=== PATIENT | male | born 1970 | race Caucasian/White ===

== ENCOUNTER 2023-12-30 15:50 | Inpatient (IN) ==
[2023-12-30] MEDS: AMIODARONE / D5W 150 MG/100 ML BAG IV STA (16:19)
[2023-12-30] MEDS ORDERED: LIDOCAINE IV BOLUS & DRIP IV STA (16:31)
[2023-12-30] MEDS: AMIODARONE / D5W 360 MG/200 ML BAG IV ONE (16:34)
[2023-12-30] MEDS: AMIODARONE IV BOLUS & DRIP IV STA (16:38)
[2023-12-30] MEDS: STAT IV Infusion **Titration per Protocol STA ×2 (16:38→17:15)
[2023-12-30] MEDS ORDERED: LIDOCAINE/D5W DRIP 4MG/ML 2,000 MG/500 ML BAG IV SCH (16:45)
[2023-12-30 16:46] LABS: Basophils # (auto) 0.03 K/uL (0.00-0.20); Basophils % (auto) 0.3 %; Eosinophils # (auto) 0.04 K/uL (0.00-0.50); Eosinophils % (auto) 0.3 %; Hematocrit (blood only) 48.2 % (42.0-52.0); Hemoglobin 15.8 g/dl (14.0-18.0); Immature Granulocytes # (auto) 0.04 K/uL (0.01-0.20); Immature Granulocytes % (auto) 0.3 %; Lymphocytes # (auto) 2.54 K/uL (1.20-3.40); Lymphocytes % (auto) 22.2 %; Mean Corpuscular Hemoglobin 28.2 pg (25.0-34.0); Mean Corpuscular Hgb Conc 32.8 g/dL (32.0-36.0); Mean Corpuscular Volume 85.9 fL (80.0-100.0); Mean Platelet Volume 9.7 fL (9.4-12.4); Monocytes # (auto) 0.84 K/uL (0.11-0.59); Monocytes % (auto) 7.3 %; Neutrophils # (auto) 7.95 K/uL (1.40-6.50); Neutrophils % (auto) 69.6 %; Platelet Count 437 K/uL (130-400); RDW Coefficient of Variation 14.7 % (11.5-14.5); RDW Standard Deviation 46.5 fL (36.4-46.3); Red Blood Count 5.61 M/uL (4.70-6.10); White Blood Count 11.44 K/ul (4.8-10.8)
--- NOTE | 2023-12-30 16:48 | Emergency Department Note ---
Impression & Plan Atrial fibrillation with rapid ventricular response, Pulmonary edema, Bilateral pleural effusion, CHF (congestive heart failure) ED Provider Note HISTORY OF PRESENT ILLNESS: Patient is able to 3-year-old male presenting with lower extremity edema and shortness of breath. Patient reports that 3 days ago he had noticed some minor swelling in his lower extremities and had noticed he was slightly short of breath with minimal amounts of exertion. He states that he was doing yard work today and felt more fatigued than normal and was very short of breath with minimal exertion. He denies any chest pain. He denies any history of cardiac stents. He takes no medications. He denies any DVT or PE history. He denies any lightheadedness or dizziness. ROS: as above PHYSICAL EXAM: Constitutional: Patient appears in no acute distress. Patient is resting comfortably in the bed answering questions appropriately. HENT: Head: Normocephalic and atraumatic. Eyes: EOMI, PERRL Mouth/Throat: Mucous membranes moist. Neck: Trachea midline. Neck supple. Cardiovascular: Tachycardic with regular rhythm. No murmurs, rubs or gallops. Intact distal pulses. Pulmonary/Chest: No respiratory distress. Breath sounds clear and equal bilaterally. No wheezes or rales. Abdominal: Abdomen soft, no tenderness, rebound or guarding. Musculoskeletal: No tenderness or deformity noted. Trace edema in the bilateral lower extremities. Skin: Warm and dry. No rash, erythema, pallor or cyanosis Psychiatric: Appropriate mood and affect for situation. Neurological: Alert and keenly responsive. CN II-XII grossly intact, moving all extremities equally and fully. MDM: - Vitals signs showed tachycardia - History obtained via patient. History as above. - Chronic conditions affecting care: None - Differential diagnoses include, but are not limited to: Dysrhythmia; electrolyte abnormality; ACS; PE; pneumonia; CHF - Order placed for continuous cardiac monitoring. At this time, monitor showed rate of 129 bpm with irregular rhythm, per my interpretation. - External medical records reviewed. - Laboratory workup interpreted by myself showed leukocytosis (WBC 11.44); elevated INR (1.2); elevated dimer (1200); stable electrolytes; transaminitis (AST 44; ALT 87); normal lipase; normal troponin; elevated BNP (257) - CXR negative for pneumonia, per my interpretation - CT PE negative for PE. Noted to have cardiomegaly with interstitial pulmonary edema bilateral pleural effusions. - On initial assessment in the emergency department, patient was in a sustained ventricular tachycardia on telemetry. He is awake and oriented and answering questions appropriately. IV access was obtained and he was given a 150 mg IV amiodarone bolus and started on amiodarone drip. He did seem to have a few seconds of breaking of his wide-complex tachycardia and would go into an atrial fibrillation with a rapid rate, but would then go back into wide-complex sustained tachycardia. He was given 100 mg of IV lidocaine. He still had persistent tachycardia in the 180s to 220s. He was given an additional 150 mg IV amiodarone bolus with a continued drip. He was then given 5 mg IV Lopressor, a 69 mg IV esmolol bolus and started on esmolol drip. - Discussed case with bass singer, Dr. Bhagat, who presented to bedside. He agreed with the Lopressor and esmolol. Reports heart rate goal in the 120s. He recommended starting the patient on heparin drip. - Heparin drip ordered. - Patient's blood pressures remained stable and heart rate on the multiple drips was in the 130s on repeat assessment at 18:14. - Patient had multiple EKGs performed in the ER while under my care. His initial EKG interpreted by myself and obtained at 1613 showed ventricular tachycardia with a rate of 218. Repeat EKG obtained at 1631 interpreted by myself showed atrial fibrillation with rapid ventricular rate of 183 bpm. Repeat EKG obtained at 1643 interpreted by myself showed wide-complex tachycardia consistent with ventricular tachycardia. Rate 185 bpm. Repeat EKG obtained at 1701 interpreted by myself showed atrial fibrillation with rapid ventricular rate. Heart rate 182 bpm. Another EKG obtained at 1717 interpreted myself showed atrial fibrillation with rapid ventricular rate of 143 bpm. No acute ischemic changes. - Discussion was had with embedded case manager about patient's case and need for admission - Hospitalist consulted for admission - Patient admitted to [facility] service for further evaluation and management. I have personally spent 98 minutes of critical care time in the direct management of this patient. This includes bedside care, interpretation of diagnostic studies, and testing, discussion with consultants, patient, and family members, and other required patient management activities. This 98 minutes is in excess of all separately billable procedures. ASSESSMENT AND PLAN: Diagnosis: Atrial fibrillation with rapid ventricular rate; bilateral pleural effusions; pulmonary edema Plan: Admit Past Med/Surg History Problem List (Updated 12/30/23 @ 18:19 by Meri Davies MD) CHF (congestive heart failure) (Acute) Bilateral pleural effusion (Acute) Pulmonary edema (Acute) Atrial fibrillation with rapid ventricular response (Acute) Social History Smoking Status: Never smoker Preferred Language: Hungarian Feels Safe at Home: Yes Allergies Allergies Allergy/AdvReac Type Severity Reaction Status Date / Time No Known Allergies Allergy Unverified 12/30/23 16:39 Home Meds Home Medications Medication Instructions Recorded Confirmed No Known Home Medications 12/30/23 12/30/23 Results & Data (ED) Vital Signs Vital Signs - 24 hr 12/30/23 16:07 12/30/23 16:08 12/30/23 16:23 Temperature 36.7 C Temperature Source Temporal Artery Scan Pulse Rate 147 H 223 H Pulse Rate [Left Apical] Respiratory Rate 20 Respiratory Effort / Characteristics Non-Labored Spontaneous Respiratory Depth Normal Respiratory Pattern Blood Pressure 131/98 Blood Pressure [Right Arm] Blood Pressure Mean 109 Blood Pressure Mean [Right Arm] Blood Pressure Position Sitting Pulse Oximetry 97 99 Oxygen Delivery Method Room Air Room Air Sepsis Recent Fever Within 48 Hours No Sepsis New/Unexplained Change in Mental Status No Sepsis Action Taken by Nursing No Action Required 12/30/23 16:23 12/30/23 16:24 12/30/23 16:27 Temperature Temperature Source Pulse Rate 225 H 206 H Pulse Rate [Left Apical] 220 H Respiratory Rate 23 Respiratory Effort / Characteristics Respiratory Depth Respiratory Pattern Blood Pressure Blood Pressure [Right Arm] 141/110 H Blood Pressure Mean Blood Pressure Mean [Right Arm] 120 Blood Pressure Position Pulse Oximetry 98 99 Oxygen Delivery Method Room Air Room Air Sepsis Recent Fever Within 48 Hours Sepsis New/Unexplained Change in Mental Status Sepsis Action Taken by Nursing 12/30/23 16:31 12/30/23 16:40 12/30/23 16:45 Temperature Temperature Source Pulse Rate 190 H Pulse Rate [Left Apical] 156 H Respiratory Rate 20 Respiratory Effort / Characteristics Respiratory Depth Respiratory Pattern Blood Pressure 121/97 Blood Pressure [Right Arm] Blood Pressure Mean 103 Blood Pressure Mean [Right Arm] Blood Pressure Position Pulse Oximetry 98 Oxygen Delivery Method Room Air Sepsis Recent Fever Within 48 Hours Sepsis New/Unexplained Change in Mental Status Sepsis Action Taken by Nursing 12/30/23 16:47 12/30/23 16:51 12/30/23 17:04 Temperature Temperature Source Pulse Rate 198 H Pulse Rate [Left Apical] Respiratory Rate Respiratory Effort / Characteristics Respiratory Depth Respiratory Pattern Blood Pressure 145/99 H 165/133 H Blood Pressure [Right Arm] Blood Pressure Mean 112 138 Blood Pressure Mean [Right Arm] Blood Pressure Position Pulse Oximetry 100 Oxygen Delivery Method Room Air Sepsis Recent Fever Within 48 Hours Sepsis New/Unexplained Change in Mental Status Sepsis Action Taken by Nursing 12/30/23 17:06 12/30/23 17:12 12/30/23 17:16 Temperature Temperature Source Pulse Rate 174 H 155 H Pulse Rate [Left Apical] 150 H Respiratory Rate 22 Respiratory Effort / Characteristics Respiratory Depth Respiratory Pattern Blood Pressure 165/133 H Blood Pressure [Right Arm] 154/116 H Blood Pressure Mean Blood Pressure Mean [Right Arm] 128 Blood Pressure Position Pulse Oximetry 99 Oxygen Delivery Method Room Air Sepsis Recent Fever Within 48 Hours Sepsis New/Unexplained Change in Mental Status Sepsis Action Taken by Nursing 12/30/23 17:23 12/30/23 17:41 12/30/23 17:58 Temperature Temperature Source Pulse Rate Pulse Rate [Left Apical] 140 H 144 H Respiratory Rate Respiratory Effort / Characteristics Respiratory Depth Respiratory Pattern Blood Pressure 145/98 H Blood Pressure [Right Arm] 121/104 H 124/105 H Blood Pressure Mean 121 Blood Pressure Mean [Right Arm] 109 111 Blood Pressure Position Pulse Oximetry Oxygen Delivery Method Sepsis Recent Fever Within 48 Hours Sepsis New/Unexplained Change in Mental Status Sepsis Action Taken by Nursing 12/30/23 18:01 12/30/23 18:11 Temperature Temperature Source Pulse Rate Pulse Rate [Left Apical] 139 H 129 H Respiratory Rate 18 Respiratory Effort / Characteristics Non-Labored Spontaneous Respiratory Depth Normal Respiratory Pattern Regular Blood Pressure Blood Pressure [Right Arm] 121/95 116/93 Blood Pressure Mean Blood Pressure Mean [Right Arm] 103 100 Blood Pressure Position Pulse Oximetry 97 Oxygen Delivery Method Room Air Sepsis Recent Fever Within 48 Hours Sepsis New/Unexplained Change in Mental Status Sepsis Action Taken by Nursing Laboratory Data 12/30/23 16:17 12/30/23 16:17 Lab Results 12/30/23 12/30/23 Range/Units 16:14 16:17 WBC 11.44 H (4.8-10.8) K/ul RBC 5.61 (4.70-6.10) M/uL Hgb 15.8 (14.0-18.0) g/dl Hct 48.2 (42.0-52.0) % MCV 85.9 (80.0-100.0) fL MCH 28.2 (25.0-34.0) pg MCHC 32.8 (32.0-36.0) g/dL RDW Std Deviation 46.5 H (36.4-46.3) fL RDW Coeff of Matt 14.7 H (11.5-14.5) % Plt Count 437 H (130-400) K/uL MPV 9.7 (9.4-12.4) fL Immature Gran % (Auto) 0.3 % Neut % (Auto) 69.6 % Lymph % (Auto) 22.2 % [place] % (Auto) 7.3 % Eos % (Auto) 0.3 % Baso % (Auto) 0.3 % Neut # (Auto) 7.95 H (1.40-6.50) K/uL Lymph # (Auto) 2.54 (1.20-3.40) K/uL [place] # (Auto) 0.84 H (0.11-0.59) K/uL Eos # (Auto) 0.04 (0.00-0.50) K/uL Baso # (Auto) 0.03 (0.00-0.20) K/uL Immature Gran # (Auto) 0.04 (0.01-0.20) K/uL PT 12.4 H (9.0-12.0) Seconds INR 1.2 H (0.9-1.1) D-Dimer 1200 H* (0-500) ug/L FEU Sodium 136 (136-145) mmol/L Potassium 3.9 (3.5-5.1) mmol/L Chloride 104 (98-107) mmol/L Carbon Dioxide 22 (21-32) mmol/L Anion Gap 10 (3-11) BUN 17 (6-23) mg/dl Creatinine 1.16 (0.6-1.4) mg/dl Est Cr Clr Drug Dosing 103.0 ml/min eGFR 75.31 BUN/Creatinine Ratio 14.7 (10-20) Glucose 123 H (70-99(Fasting)) mg/dl Calcium 9.0 (8.6-10.3) mg/dl Magnesium 1.7 (1.7-2.4) mg/dl Total Bilirubin 0.7 (0.2-1.0) mg/dl AST 44 H (13-39) U/L ALT 87 H (7-52) U/L Alkaline Phosphatase 66 (34-104) U/L Troponin I High Sens 11.6 (0-20) pg/ml B-Natriuretic Peptide 257 H (0-100) pg/ml Total Protein 6.2 (6.0-8.3) gm/dl Albumin 3.8 (3.4-5.0) gm/dl Globulin 2.4 L (2.5-4.0) gm/dl Albumin/Globulin Ratio 1.6 (0.9-2) Lipase 21 (11-82) U/L Administered Medications Amiodarone HCl/Dextrose (Nexterone / D5w) 360 mg in 200 mls @ 33.333 mls/hr IV ONE ONE Stop: 12/30/23 22:24 Last Admin: 12/30/23 16:34 Dose: 1 mg/min, 33.3 mls/hr Documented By: KATIE Co-signed By: BOBBI Esmolol HCl (Brevibloc) 2,500 mg in 250 mls @ 41.34 mls/hr IV .[facility]3M [facility]; Protocol Stop: 01/29/24 17:14 Last Titration: 12/30/23 17:25 Dose: 100 mcg/kg/min, 82.7 mls/hr Documented By: Admin: 12/30/23 17:13 Dose: 50 mcg/kg/min, 41.3 mls/hr Documented By: KATIE Co-signed By: Discontinued Medications Amiodarone HCl (Amiodarone Iv Bolus & Drip) 1 each IV NOW STA; Protocol Stop: 12/30/23 16:16 Last Admin: 12/30/23 16:38 Dose: Not Given Documented By: JL Esmolol HCl (Esmolol Bolus From Bag) 69 mg IV ONE ONE Stop: 12/30/23 17:08 Last Admin: 12/30/23 17:11 Dose: 69 mg Documented By: KATIE Co-signed By: DINA Esmolol HCl (Esmolol 2500mg / Nss 250ml) Confirm Administered Dose 2,500 mg IV .STK-MED ONE Stop: 12/30/23 17:10 Last Admin: 12/30/23 17:15 Dose: Not Given Documented By: JL Amiodarone HCl/Dextrose (Nexterone / D5w) 150 mg in 100 mls @ 600 mls/hr IV NOW STA Stop: 12/30/23 16:24 Last Infusion: 12/30/23 16:36 Dose: Infused Documented By: JL Co-signed By: BOBBI Admin: 12/30/23 16:19 Dose: 600 mls/hr Documented By: DINA Co-signed By: JL Amiodarone HCl/Dextrose (Nexterone / D5w) 150 mg in 100 mls @ 600 mls/hr IV NOW ONE Stop: 12/30/23 17:09 Last Infusion: 12/30/23 17:06 Dose: Infused Documented By: JL Co-signed By: DINA Admin: 12/30/23 16:55 Dose: 600 mls/hr Documented By: JL Co-signed By: BOBBI Ioversol (Optiray 320 125ml) 118 ml IV ONCE ONE Stop: 12/30/23 17:51 Last Admin: 12/30/23 17:50 Dose: 118 ml Documented By: SAMUEL Lidocaine HCl (Lidocaine 2% 20 Mg/Ml 5 Ml Syr) 100 mg IV ONE STA Stop: 12/30/23 16:32 Last Admin: 12/30/23 16:50 Dose: 100 mg Documented By: JL Metoprolol Tartrate (Metoprolol Tartrate 1 Mg/Ml Vial) Confirm Administered Dose 5 mg IV .STK-MED ONE Stop: 12/30/23 17:06 Last Admin: 12/30/23 17:06 Dose: 5 mg Documented By: JL Metoprolol Tartrate (Metoprolol Tartrate 1 Mg/Ml Vial) 5 mg IV NOW STA Stop: 12/30/23 17:06 Last Admin: 12/30/23 17:09 Dose: Not Given Documented By: JL Misnalinianeous (Stat Iv Infusion Titration Per Protocol) 1 each N/A NOW STA Stop: 12/30/23 16:16 Last Admin: 12/30/23 16:38 Dose: Not Given Documented By: JL Miscellaneous (Stat Iv Infusion Titration Per Protocol) 1 each N/A NOW STA Stop: 12/30/23 17:08 Last Admin: 12/30/23 17:15 Dose: Not Given Documented By: [facility] Imaging Data Radiologist's Impression: Chest X-Ray 12/30/23 16:08 XR chest 1V portable CLINICAL HISTORY: Chest pain, nonspecific TECHNIQUE: Single frontal radiograph of the chest was obtained. Comparison: None available at the time of this dictation. FINDINGS: Exam is limited by underpenetration. The cardiomediastinal silhouette is normal. The lungs are clear. No evidence of pleural effusion or pneumothorax. IMPRESSION: No acute chest disease. ACT 112: Negative or not required by law. Electronically signed by: Jaquan Dawson M.D. 12/30/2023 5:10 PM Chest CTA 12/30/23 17:27 CT angio chest PE protocol CT DOSE: 967.96 mGy.cm HISTORY: 53 years-old Male with PE. Acute shortness of breath with chest pain TECHNIQUE: Multiple CTA images of the chest were obtained after the intravenous administration of 118 ml Optiray. Coronal and sagittal MIPS were obtained from the axial data set and were submitted for review. All measurements were obtained according to NASCET criteria. A dose lowering technique was utilized adhering to the principles of ALARA. COMPARISON: Chest radiograph of same day. FINDINGS: CTA: Mild to moderate cardiomegaly. No pericardial effusion. Mild coronary artery calcifications. Left heart structures are not well opacified and therefore not well evaluated. No central pulmonary emboli identified. Suboptimal evaluation of the pulmonary arteries secondary to contrast bolus timing and respiratory motion artifact. CT CHEST: Unremarkable thyroid. Small left with moderate right pleural effusions. No pneumothorax. Intralobular septal thickening. Mild dependent subsegmental bibasilar atelectasis. There are no suspicious pulmonary nodules or masses. Central airways are patent. Mild mediastinal and hilar lymphadenopathy. Small hiatal hernia. Trace upper abdominal ascites. There are a few scattered hypodense foci of the liver measuring up to 1.2 cm suggestive of probable cysts. IMPRESSION: 1. Cardiomegaly with interstitial pulmonary edema, small left and moderate right pleural effusions. 2. No pulmonary emboli identified. 3. Mild bibasilar atelectasis. 4. Mildly enlarged mediastinal and hilar lymph nodes, favored to be reactive. ACT 112: Negative or not required by law. The above report was generated using voice recognition software. It may contain grammatical, syntax or spelling errors. Electronically signed by: Lenin Alexandra M.D. 12/30/2023 6:08 PM Discharge Plan Visit Data Chief Complaint: Cardiac Assessment Stated Complaint: HIGH BLOOD PRESSURE ED Provider: Meri Davies Discharge Problem: Atrial fibrillation with rapid ventricular response, Pulmonary edema, Bilateral pleural effusion, CHF (congestive heart failure) Forms Stand Alone Forms: [facility] [employer] Prescriptions Prescriptions: No Action No Known Home Medications Referrals Referrals: Ganga Jorgensen MD [Outside Practitioners] -
[2023-12-30] MEDS: LIDOCAINE 2% 20 MG/ML 5 ML SYR IV STA (16:50)
[2023-12-30] MEDS: AMIODARONE / D5W 150 MG/100 ML BAG IV ONE (16:55)
[2023-12-30] MEDS ORDERED: 0.2 MICRON FILTER SET 1 EACH IV ONE (17:00)
--- NOTE | 2023-12-30 17:00 | Electrocardiogram Report ---
Test Reason : Blood Pressure : */* mmHG Vent. Rate : 218 BPM Atrial Rate : 56 BPM P-R Int : * ms QRS Dur : 154 ms QT Int : 260 ms P-R-T Axes : * -54 139 degrees QTcB Int : 495 ms Poor data quality, interpretation may be adversely affected Wide QRS tachycardia , probably ventricular tachycardia Left axis deviation Abnormal ECG No previous ECGs available Confirmed by José Noriega ([id number]) on 12/30/2023 4:59:41 PM Referred By: Confirmed By: José Noriega
[2023-12-30] MEDS: METOPROLOL TARTRATE 1 MG/ML VIAL IV ONE (17:06)
[2023-12-30 17:07] LABS: Albumin Globulin Ratio 1.6 (0.9-2); Albumin Level 3.8 gm/dl (3.4-5.0); BUN Creatinine Ratio 14.7 (10-20); Bilirubin,Total 0.7 mg/dl (0.2-1.0); Globulin 2.4 gm/dl (2.5-4.0); Potassium 3.9 mmol/L (3.5-5.1); Total Protein 6.2 gm/dl (6.0-8.3)
[2023-12-30] MEDS: METOPROLOL TARTRATE 1 MG/ML VIAL IV STA (17:09)
[2023-12-30 17:11] LABS: Troponin I High Sensitivity 11.6 pg/ml (0-20)
[2023-12-30] MEDS: ESMOLOL BOLUS FROM BAG IV ONE (17:11)
--- NOTE | 2023-12-30 17:12 | XRay Report ---
XR chest 1V portable CLINICAL HISTORY: Chest pain, nonspecific TECHNIQUE: Single frontal radiograph of the chest was obtained. Comparison: None available at the time of this dictation. FINDINGS: Exam is limited by underpenetration. The cardiomediastinal silhouette is normal. The lungs are clear. No evidence of pleural effusion or pneumothorax. IMPRESSION: No acute chest disease. ACT 112: Negative or not required by law. Electronically signed by: Jaquan Dawson M.D. 12/30/2023 5:10 PM
[2023-12-30] MEDS: ESMOLOL / NSS 2,500 MG/250 ML BAG IV SCH (17:13)
[2023-12-30] MEDS: ESMOLOL IV ONE (17:15)
[2023-12-30] MEDS: SODIUM CHLORIDE IV ONE (17:15)
[2023-12-30 17:19] LABS: INR 1.2 (0.9-1.1); Prothrombin Time 12.4 Seconds (9.0-12.0)
[2023-12-30 17:30] LABS: D Dimer 1200 ug/L FEU (0-500)
[2023-12-30 17:36] LABS: Magnesium 1.7 mg/dl (1.7-2.4)
[2023-12-30] MEDS: OPTIRAY 320 125ml IV ONE (17:50)
--- NOTE | 2023-12-30 18:10 | CT Scan Report ---
CT angio chest PE protocol CT DOSE: 967.96 mGy.cm HISTORY: 53 years-old Male with PE. Acute shortness of breath with chest pain TECHNIQUE: Multiple CTA images of the chest were obtained after the intravenous administration of 118 ml Optiray. Coronal and sagittal MIPS were obtained from the axial data set and were submitted for review. All measurements were obtained according to NASCET criteria. A dose lowering technique was u tilized adhering to the principles of ALARA. COMPARISON: Chest radiograph of same day. FINDINGS: CTA: Mild to moderate cardiomegaly. No pericardial effusion. Mild coronary artery calcifications. Left hea rt structures are not well opacified and therefore not well evaluated. No central pulmonary emboli id entified. Suboptimal evaluation of the pulmonary arteries secondary to contrast bolus timing and resp iratory motion artifact. CT CHEST: Unremarkable thyroid. Small left with moderate right pleural effusions. No pneumothorax. Intralobular septal thickening. Mild dependent subsegmental bibasilar atelectasis. There are no suspicious pulmon zuleyma nodules or masses. Central airways are patent. Mild mediastinal and hilar lymphadenopathy. Small hiatal hernia. Trace upper abdominal ascites. There are a few scattered hypodense foci of the l iver measuring up to 1.2 cm suggestive of probable cysts. IMPRESSION: 1. Cardiomegaly with interstitial pulmonary edema, small left and moderate right pleural effusions. 2. No pulmonary emboli identified. 3. Mild bibasilar atelectasis. 4. Mildly enlarged mediastinal and hilar lymph nodes, favored to be reactive. ACT 112: Negative or not required by law. The above report was generated using voice recognition software. It may contain grammatical, syntax o r spelling errors. Electronically signed by: Lenin Alexandra M.D. 12/30/2023 6:08 PM
--- NOTE | 2023-12-30 18:37 | Cardiology Consultation ---
Date of Consultation December 30, 2023 Assessment & Plan (1) Wide-complex tachycardia: 2. Atrial fibrillation with RVR 3. Acute heart failure 4. Elevated LFTs 5. Mild coronary artery calcifications Patient without known cardiac history here with initial new wide-complex tachycardia. After amiodarone, lidocaine has converted back and forth between WCT and A-fib with RVR to 170s. During all of this has remained largely asymptomatic and hemodynamically stable. Initial ECG concerning for ventricular tachycardia. Since that time WCT seems more consistent with SVT with aberrancy. With cardiomegaly on CT, elevated BNP, and apparent heart failure suspect undiagnosed structural heart disease. Currently appears to be responding to amiodarone infusion as well as as beta- blockade with esmolol drip. Has remained primarily in narrow complex rhythm with slowing heart rates. Recommendations: As primarily in AF now, goal for rate control overnight. Continue amiodarone infusion Continue current esmolol drip, titrate to heart rates 120s and below Start heparin infusion With unknown duration of arrhythmia would hold off on cardioversion unless hemodynamically unstable Gentle IV diuresis Continue to trend troponin Echocardiogram in the morning Will ask EP to see patient tomorrow. History of Present Illness History of Present Illness Mr. Dumas is a very pleasant 53-year-old man seen urgently in the ED in the setting of wide-complex tachycardia. Patient denies any significant past medical history. Reports multiple family members with hypertension but denies any history of premature CAD, sudden cardiac or known arrhythmia. Active at baseline, walks 2 miles every day including today. States that over the weekend has been feeling somewhat not like himself. Today felt more fatigued, blood pressure seemed elevated and just felt like something was wrong. Denies any presyncope, chest pain or shortness of breath. No new orthopnea, lower extremity edema. Regular wide-complex tachycardia in the ED with heart rate to the 200s (LBBB morphology, superior axis, no concordance, ? fusion beat). Hemodynamically stable. Bolused with amiodarone, lidocaine. Converted to narrow complex tac hycardia which appeared to be A-fib with RVR in the 170s before returning to WCT, additional bolus of amiodarone. Repeated conversion from WCT to narrow complex AF AF and back. During all of this patient felt anxious but denied any other cardiac symptoms. Remained hemodynamically stable. HS TropI normal. Electrolytes normal. D-dimer 1200, BNP 257. Chest CTA negative for PE. Cardiomegaly with mild interstitial edema, bilateral pleural effusions. Mild coronary calcifications. 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 Allergies Allergy/AdvReac Type Severity Reaction Status Date / Time No Known Allergies Allergy Unverified 12/30/23 16:39 Home Medications Medication Instructions Recorded Confirmed Type No Known Home Medications 12/30/23 12/30/23 History Patient History Social History Smoking Status: Never smoker Preferred Language: P[place] Feels Safe at Home: Yes Review of Systems Review of Systems: All systems reviewed & are unremarkable except as noted in HPI & below Physical Exam Physical Exam: General: Comfortable but anxious HEENT: Sclerae anicteric Lungs: Clear with decreased breath sounds at bases Cardiac: Tachycardic, irregular irregular, no appreciable murmurs Vascular: 2+ radial Abdomen: Soft, nontender Extremities: Well perfused, no peripheral edema Neuro: Nonfocal Psych: Alert orient x3, normal affect and mood Results & Data Vital Signs (Past 12 Hours) Vital Signs Temp Pulse Pulse Resp BP BP Pulse Ox 12/30/23 18:11 129 H 116/93 12/30/23 18:01 139 H 18 121/95 97 12/30/23 17:58 145/98 H 12/30/23 17:41 144 H 124/105 H 12/30/23 17:23 140 H 121/104 H 12/30/23 17:16 150 H 154/116 H 12/30/23 17:12 155 H 22 99 12/30/23 17:06 174 H 165/133 H 12/30/23 17:04 165/133 H 12/30/23 16:51 198 H 100 12/30/23 16:47 145/99 H 12/30/23 16:45 190 H 20 98 12/30/23 16:40 156 H 12/30/23 16:31 121/97 12/30/23 16:27 206 H 99 12/30/23 16:24 225 H 12/30/23 16:23 220 H 23 141/110 H 98 12/30/23 16:23 223 H 12/30/23 16:08 99 12/30/23 16:07 98.1 F 147 H 20 131/98 97 O2 Del Method 12/30/23 18:11 10/07/24 18:01 Room Air 12/30/23 17:58 12/30/23 17:41 12/30/23 17:23 12/30/23 17:16 12/30/23 17:12 Room Air 12/30/23 17:06 12/30/23 17:04 12/30/23 16:51 Room Air 12/30/23 16:47 12/30/23 16:45 Room Air 12/30/23 16:40 12/30/23 16:31 12/30/23 16:27 Room Air 12/30/23 16:24 12/30/23 16:23 Room Air 12/30/23 16:23 12/30/23 16:08 Room Air 12/30/23 16:07 Room Air PG Care Time/CCT Total # of Minutes Spent Total Time Spent with Patient: Total time spent is greater than 50% in coordination of care (as documented) at patient's floor/unit and/or counseling patient: Coding Level of Care Code 38564 OFFICE CONSULT LVL 5/55M Diagnoses Wide-complex tachycardia R00.0
[2023-12-30] MEDS: HEPARIN SODIUM/DEXTROSE 25,000 UNITS/500 ML BAG IV SCH (18:55)
[2023-12-30] MEDS: Heparin IV Adult Wt-Based Low-Dose *NO* INITIAL Bolus Protocol IV SCH (18:56)
[2023-12-30] MEDS: Heparin IV Adult Wt-Based Low-Dose *NO* INITIAL Bolus Protocol IV STA (18:56)
--- NOTE | 2023-12-30 19:12 | History & Physical Report ---
Date of Service December 30, 2023 Assessment & Plan (1) Wide-complex tachycardia: (2) Atrial fibrillation with rapid ventricular response: (3) Pulmonary edema: (4) Bilateral pleural effusion: Plan: 53 year old male with no known past medical history presenting with shortness of breath and leg edema x few days. 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 Patient states that for the past three days, he has been having shortness of breath with exertion and also noticed bilateral lower leg swelling. Today, while doing some yard work, patient had worsening shortness of breath prompting consult to the ER. At the ER, patient was noted to have wide complex tachycardia/V tach with HR 200s. Amiodarone and Lidocaine given, rhythm converted to atrial fibrillation in RVR. However, rhythm converted again to wide complex tachycardia. Esmolol started converting rhythm to atrial fibrillation in RVR. BP stable and patient asymptomatic. Heparin drip started for A fib. CT angio negative for PE. On exam, patient seen resting in bed, not in distress, comfortable. Feels tired but no active chest pain, dyspnea, palpitations, dizziness. Allergies Allergy/AdvReac Type Severity Reaction Status Date / Time No Known Allergies Allergy Unverified 12/30/23 16:39 Home Medications Medication Instructions Recorded Confirmed Type No Known Home Medications 12/30/23 12/30/23 History Past Med/Surg History Problem List (Updated 12/30/23 @ 19:42 by CATE Cordova) Elevated LFTs Heart enlarged Obesity Wide-complex tachycardia CHF (congestive heart failure) (Acute) Bilateral pleural effusion (Acute) Pulmonary edema (Acute) Atrial fibrillation with rapid ventricular response (Acute) Social History Smoking Status: Never smoker Preferred Language: Faroese Feels Safe at Home: Yes Review of Systems Review of Systems: all noted and negative except for above Physical Exam Physical Exam: General- oriented x 3, not in distress, speaks in sentences with no effort or accessory muscle use Head- atraumatic Eyes- PERRL, EOMI, anicteric ENT- oropharynx clear Neck- supple, no JVD, no adenopathy, no thyromegaly; carotids +2/2, no bruits appreciated Lungs- clear to auscultation bilaterally, no rales/wheezes Heart- tachycardic, irregularly irregular rhythm; no murmur, no gallop, no rub appreciated Abdomen- normal bowel sounds, nondistended, soft, nontender, no masses or hepatosplenomegaly Extremities- grade 1 lower extremity edema, no calf tenderness; peripheral pulses intact Neuro- alert, oriented x 3; CN 2-12 grossly intact; motor 5/5 bilaterally;sensation 100% on all extremities; no other gross focal neurologic deficits Skin- warm & dry Results & Data Results & Data Vital Signs (Past 12 Hours) Vital Signs Temp Pulse Pulse Resp BP BP Pulse Ox 12/30/23 19:00 142 H 20 110/93 95 12/30/23 18:45 133 H 21 97 12/30/23 18:40 135/84 12/30/23 18:30 135/90 12/30/23 18:21 141 H 14 96 12/30/23 18:20 122/100 12/30/23 18:11 129 H 116/93 12/30/23 18:01 139 H 18 121/95 97 12/30/23 17:58 145/98 H 12/30/23 17:41 144 H 124/105 H 12/30/23 17:23 140 H 121/104 H 12/30/23 17:16 150 H 154/116 H 12/30/23 17:12 155 H 22 99 12/30/23 17:06 174 H 165/133 H 12/30/23 17:04 165/133 H 12/30/23 16:51 198 H 100 12/30/23 16:47 145/99 H 12/30/23 16:45 190 H 20 98 12/30/23 16:40 156 H 12/30/23 16:31 121/97 12/30/23 16:27 206 H 99 12/30/23 16:24 225 H 12/30/23 16:23 220 H 23 141/110 H 98 12/30/23 16:23 223 H 12/30/23 16:08 99 12/30/23 16:07 36.7 C 147 H 20 131/98 97 O2 Del Method 12/30/23 19:00 12/30/23 18:45 Room Air 12/30/23 18:40 12/30/23 18:30 12/30/23 18:21 Room Air 12/30/23 18:20 12/30/23 18:11 12/30/23 18:01 Room Air 12/30/23 17:58 12/30/23 17:41 12/30/23 17:23 12/30/23 17:16 12/30/23 17:12 Room Air 12/30/23 17:06 12/30/23 17:04 12/30/23 16:51 Room Air 12/30/23 16:47 12/30/23 16:45 Room Air 12/30/23 16:40 12/30/23 16:31 12/30/23 16:27 Room Air 12/30/23 16:24 12/30/23 16:23 Room Air 12/30/23 16:23 12/30/23 16:08 Room Air 12/30/23 16:07 Room Air Code Status & VTE Plan VTE Prophylaxis Plan VTE Prophylaxis will be ordered: Yes
[2023-12-30 19:20] LABS: Partial Thromboplastin Time 26 Seconds (21-31)
--- NOTE | 2023-12-30 19:34 | Critical Care Consultation ---
Date of Consultation December 30, 2023 Assessment & Plan (1) Wide-complex tachycardia: (2) Atrial fibrillation with rapid ventricular response: (3) Obesity: (4) Heart enlarged: (5) Elevated LFTs: (6) Bilateral pleural effusion: Plan Reason Critically Ill: 53 YOM presents to EMD with wide complex tachycardia with HR >200s, stabilized on amiodarone and esmolol infusion. ICU for hemodynamic following, drip titration, and symptom managment. Neuro - No acute needs CAM ICU: NEGATIVE Cardiac - Afib with RVR, Wide Complex Tachycardia, Enlarged heart- which is likely new onset HF - Patient presented with wide complex tachycardia- sustained VT vs. Afib with abbarancy, following stabilizing his HR afib is predominant rythm - Continue heparin infusion as we do not know how long patient has been in this rythm - Esmolol and Amiodarone infusions- titrate Esmolol for HR 120s as hemodynamics allow - If hypotension occurs add on Neosynepherine - replete magnesium - Diurese as hemodynamics permit - Hopeful to avoid cardioversion as above- unknown time in this rhythm as clot may be possible - Heparin infusion for afib - TSH pending - ECHO in am evaluate heart function - Enlarged heart with likely new onset HF - as he is with pulmonary edema, pleural effusions and +2 edema to lower extremities bilateral to just below knees- this is likely undiagnosed HF - BNP 257 - Does not appear to be ischemic related as no STEMI noted on ECGs and negative HsCTNI - Likely related to obesity and other comorbid conditions associated - lipid panel in am - HGB A1c in am - consider consult to sleep medicine for SHILPI evaluation with body habitus Respiratory - Pleural effusions, enlarged mediastinal lymphnodes - Likely related to HF - Reports lifelong non-smoker - likely reactive - CTA not conclusive for PE rule out - however he is on room air without hypoxia and regardless is anticoagulated for afib GI - Elevated LFTS, - At this time likely cause is fatty liver disease vs. CHF or combination of these - trend LFTS in am - consider further imaging if don't improve with management of HF RENAL/LYTES - Hypomag - Replete electrolytes per ICU protocol - No acute needs at this time ENDO - Elevated serum glucose without diagnosis of diabetes - HGBa1C in am - ICU hyper/hypoglycemic protocol - TSH pending - Pending lipid panel, HGBa1C, ECHO- appropriate guideline based medications should be considered HEME - No acute needs ID - No concern for infective etiology at this time - Mild leukocytosis and NLR of 3:1- likely stress related response- follow clinically LINES/IV ACCESS - PIV x3 Continue use of these lines DVT PROPHYLAXIS - SCDS, Heparin infusion DISPO: ICU while on multiple infusions for rate control and until proven hemodynamically stable I have personally spent 50 minutes of critical care time in the direct management of this patient. This is a life/limb threatening event. This includes time spent evaluating patient, direct bedside care, chart review, placing or ders, interpretation of diagnostic studies, discussion with consultants, patient, and family members, as well as other required patient management activities. This time is exclusive of all separately billable procedures, and teaching time and separate from and in addition to any other critical care service time. Thank you for allowing us to participate in the care of this patient. Please refer to my attending physician's documentation for any further recommendations. History of Present Illness Reason for Consultation: Tachycardia Requesting Physician: Prabhu Cornell MD Attending Physician: Prabhu Cornell MD History of Present Illness 53 YOM - morbidly obese that reports no medications at home and no known medical history as he does not routinely follow with a PCP. Patient drove himself to the EMD today for complaints of feeling more fatigued and dyspneic with exertion and increased swelling in his lower extremities. Patient reports he has not noticed this before. He does report that he had some dizziness with this as well as palpitations. On arrival to the EMD initial ECG was noted for HR >200 bpm and wide comlex rythm. Patient was initiated on amiodarone infusion with bolus, trialed lidocaine bolus with infusion and rhythm remained, he was then given IV metoprolol, followed by bolus of Esmolol and Esmolol infusion which appears to have brought his HR down to the 120-130s. He had a CXR completed, ECG, and CTA of the chest as well as routine labs. ECG did not reveal any STEMI, CTA of the chest was negative for pulmonary embolism- however noted to be suboptimal study by radiologist interpretation secondary to dye timing and respiratory artifact, either way he was initiated on heparin infusion for his Afib rhythm. CTA was also notable for Cardiomegaly with pulmonary edema, and enlarged mediastinal lymphnodes. Patient is currently awake, denies CP and feels his breathing and palpitations have improved since arrival. He is currently in afib and BP is adequate without no need for vasopressors currently, and he is on room air with adequate oxygenation. Patient will come to the ICU for continued infusions, following hemodynamic response, monitoring of rhythm. Appreciate Cardiology evaluation and discussion with ICU team prior to arrival. CODE: FULL Allergies Allergy/AdvReac Type Severity Reaction Status Date / Time No Known Allergies Allergy Unverified 12/30/23 16:39 Home Medications Medication Instructions Recorded Confirmed Type No Known Home Medications 12/30/23 12/30/23 History Patient History Social History Smoking Status: Never smoker Second Hand Exposure: No; Do You Dip or Chew Tobacco: Yes; Hx Alcohol Use: Yes Hx Substance Use: No Preferred Language: Sami Communication Ability: Effective Pearl Glue Drier Required: No Beliefs That Will Affect Care: None Current Living Situation: Alone Current Living Situation Comment: alone Other Information That Helps Us Care for You: No Feels Safe at Home: Yes Safety Concerns: Feels Safe At This Time Assistive Devices: None Review of Systems Review of Systems: REVIEW OF SYSTEMS: Constitutional: No fever, sweats or chills Eyes: No diplopia, no worsening or blurred vision ENT: normal hearing, no trouble swallowing Respiratory: (+) dyspnea at rest or on exertion, No cough, sputum, Cardiovascular: (+) palpitations, dizziness, increased swelling of legs, No chest pain, tightness or Abdomen: No pain, nausea, vomiting, diarrhea or constipation Musculoskeletal: No joint pain, calf pain, swelling Neurologic: No weakness, numbness/tingling, or balance problems Psychiatric: No anxiety or depression Skin: No rash or itch Physical Exam Physical Exam: PHYSICAL EXAM: General: awake, alert, anxious appearing Head: Normocephalic, atraumatic ENT: PERRLA, EOMI, no pharyngeal exudate, mucous membranes moist Neuro: AAO x 3, speech clear and appropriate, strength intact bilaterally 5/5, no pronator drift Chest: equal rise and fall of the chest, no accessory muscle use, no heaves or thrills, decreased in bases bilaterally difficult exam secondary to body habitus, on room air, Cardiac: irregular rate and rhythm, telemetry reviewed- afib RVR no ectopy, skin warm dry, cap refill <3 seconds, peripheral pulses +2 no JVD, S1S2 no murmur, however diffiult exam secondary to body habitus, +2 edema in feet, up to just below knees bilaterally, GI: NABS x 4 quadrants, softly obese, nontender to palpation, no rebound, guarding or tenderness : Spontaneously voiding, no pain, no CVA tenderness, Extremities: Normal inspection, no peripheral edema or erythema, calfs nontender to palpation Psych: Normal mood and affect Skin: no rash or erythema Results & Data Results & Data Vital Signs (Past 12 Hours) Vital Signs Temp Pulse Pulse Resp BP BP Pulse Ox 12/30/23 19:13 97 12/30/23 19:00 142 H 20 110/93 95 12/30/23 18:45 133 H 21 97 12/30/23 18:40 135/84 12/30/23 18:30 135/90 12/30/23 18:21 141 H 14 96 12/30/23 18:20 122/100 12/30/23 18:11 129 H 116/93 12/30/23 18:01 139 H 18 121/95 97 12/30/23 17:58 145/98 H 12/30/23 17:41 144 H 124/105 H 12/30/23 17:23 140 H 121/104 H 12/30/23 17:16 150 H 154/116 H 12/30/23 17:12 155 H 22 99 12/30/23 17:06 174 H 165/133 H 12/30/23 17:04 165/133 H 12/30/23 16:51 198 H 100 12/30/23 16:47 145/99 H 12/30/23 16:45 190 H 20 98 12/30/23 16:40 156 H 12/30/23 16:31 121/97 12/30/23 16:27 206 H 99 12/30/23 16:24 225 H 12/30/23 16:23 220 H 23 141/110 H 98 12/30/23 16:23 223 H 12/30/23 16:08 99 12/30/23 16:07 36.7 C 147 H 20 131/98 97 O2 Del Method 12/30/23 19:13 Room Air 12/30/23 19:00 12/30/23 18:45 Room Air 12/30/23 18:40 12/30/23 18:30 12/30/23 18:21 Room Air 12/30/23 18:20 12/30/23 18:11 12/30/23 18:01 Room Air 12/30/23 17:58 12/30/23 17:41 12/30/23 17:23 12/30/23 17:16 12/30/23 17:12 Room Air 12/30/23 17:06 12/30/23 17:04 12/30/23 16:51 Room Air 12/30/23 16:47 12/30/23 16:45 Room Air 12/30/23 16:40 12/30/23 16:31 12/30/23 16:27 Room Air 12/30/23 16:24 12/30/23 16:23 Room Air 12/30/23 16:23 12/30/23 16:08 Room Air 12/30/23 16:07 Room Air Laboratory Results Abnormal lab results 12/30/23 12/30/23 Range/Units 16:14 16:17 WBC 11.44 H (4.8-10.8) K/ul RDW Std Deviation 46.5 H (36.4-46.3) fL RDW Coeff of Matt 14.7 H (11.5-14.5) % Plt Count 437 H (130-400) K/uL Neut # (Auto) 7.95 H (1.40-6.50) K/uL [place] # (Auto) 0.84 H (0.11-0.59) K/uL PT 12.4 H (9.0-12.0) Seconds INR 1.2 H (0.9-1.1) D-Dimer 1200 H* (0-500) ug/L FEU Glucose 123 H (70-99(Fasting)) mg/dl AST 44 H (13-39) U/L ALT 87 H (7-52) U/L B-Natriuretic Peptide 257 H (0-100) pg/ml Globulin 2.4 L (2.5-4.0) gm/dl Diagnostic Findings Chest X-Ray 12/30/23 16:08 XR chest 1V portable CLINICAL HISTORY: Chest pain, nonspecific TECHNIQUE: Single frontal radiograph of the chest was obtained. Comparison: None available at the time of this dictation. FINDINGS: Exam is limited by underpenetration. The cardiomediastinal silhouette is normal. The lungs are clear. No evidence of pleural effusion or pneumothorax. IMPRESSION: No acute chest disease. ACT 112: Negative or not required by law. Electronically signed by: Jaquan Dawson M.D. 12/30/2023 5:10 PM Chest CTA 12/30/23 17:27 CT angio chest PE protocol CT DOSE: 967.96 mGy.cm HISTORY: 53 years-old Male with PE. Acute shortness of breath with chest pain TECHNIQUE: Multiple CTA images of the chest were obtained after the intravenous administration of 118 ml Optiray. Coronal and sagittal MIPS were obtained from the axial data set and were submitted for review. All measurements were obtained according to NASCET criteria. A dose lowering technique was utilized adhering to the principles of ALARA. COMPARISON: Chest radiograph of same day. FINDINGS: CTA: Mild to moderate cardiomegaly. No pericardial effusion. Mild coronary artery calcifications. Left heart structures are not well opacified and therefore not well evaluated. No central pulmonary emboli identified. Suboptimal evaluation of the pulmonary arteries secondary to contrast bolus timing and respiratory motion artifact. CT CHEST: Unremarkable thyroid. Small left with moderate right pleural effusions. No pneumothorax. Intralobular septal thickening. Mild dependent subsegmental bibasilar atelectasis. There are no suspicious pulmonary nodules or masses. Central airways are patent. Mild mediastinal and hilar lymphadenopathy. Small hiatal hernia. Trace upper abdominal ascites. There are a few scattered hypodense foci of the liver measuring up to 1.2 cm suggestive of probable cysts. IMPRESSION: 1. Cardiomegaly with interstitial pulmonary edema, small left and moderate right pleural effusions. 2. No pulmonary emboli identified. 3. Mild bibasilar atelectasis. 4. Mildly enlarged mediastinal and hilar lymph nodes, favored to be reactive. ACT 112: Negative or not required by law. The above report was generated using voice recognition software. It may contain grammatical, syntax or spelling errors. Electronically signed by: Lenin Alexandra M.D. 12/30/2023 6:08 PM Medications Administered Home Medications No Known Home Medications 12/30/23 [History Confirmed 12/30/23] Active Medications Amiodarone HCl/Dextrose (Nexterone / D5w) 360 mg in 200 mls @ 33.333 mls/hr IV ONE ONE Stop: 12/30/23 22:24 Last Admin: 12/30/23 16:34 Dose: 1 mg/min, 33.3 mls/hr Amiodarone HCl/Dextrose (Nexterone / D5w) 360 mg in 200 mls @ 16.667 mls/hr IV .Q12H PIEDAD Stop: 01/29/24 22:14 Esmolol HCl (Brevibloc) 2,500 mg in 250 mls @ 41.34 mls/hr IV .Q6H3M PIEDAD; Protocol Stop: 01/29/24 17:14 Last Titration: 12/30/23 17:25 Dose: 100 mcg/kg/min, 82.7 mls/hr Heparin Sodium/Dextrose (Heparin Sodium/Dextrose) 25,000 units in 500 mls @ 20 mls/hr IV .Q24H PIEDAD; Protocol Stop: 01/29/24 17:44 Last Admin: 12/30/23 18:55 Dose: 1,000 units/hr, 20 mls/hr Magnesium Sulfate/Dextrose (Magnesium Sulfate / D5w) 1 gm in 100 mls @ 50 mls/hr IV Q2H PIEDAD Stop: 12/31/23 01:29 Miscellaneous (Icu Protocol For Hyperglycemia) 1 each N/A ACHS [facility] Stop: 01/01/24 20:59 ECG Additional Comments: Atrial fibrillationwith rapid ventricular response Anteroseptal infarct(cited on or [id number]) Abnormal ECG When compared with ECG [id number] 16:41,(unconfirmed) Questionable change in initial forces ofSeptal leads Poor data quality, interpretation may be adversely affected Wide QRS tachycardia, probably ventricular tachycardia Left axis deviation Abnormal ECG No previous ECGs available Confirmed by José Noriega ([id number]) on 12/30/2023 4:59:41 PM Coding Level of Care Code 78419 CRITICAL CARE 1ST 30-74M Diagnoses Wide-complex tachycardia R00.0 Atrial fibrillation with rapid ventricular response I48.91 Obesity E66.9 Heart enlarged I51.7 Elevated LFTs R79.89 Bilateral pleural effusion J90
[2023-12-30] MEDS ORDERED: STAT IV Infusion **Titration per Protocol STA (20:03)
[2023-12-30] MEDS: MAGNESIUM SULFATE / D5W 1 GM/100 ML BAG IV SCH (20:04)
[2023-12-30] MEDS: PHENYLEPHRINE/NSS 25 MG/250 ML BAG IV SCH (20:13)
[2023-12-30 20:25] LABS: Thyroid Stimulating Hormone 3.111 uIu/ml (0.300-4.500)
[2023-12-30] MEDS: POTASSIUM CHLORIDE CRTAB 20 MEQ TABCR PO STA (20:31)
[2023-12-30] MEDS: ICU Protocol for HYPERglycemia SCH (21:13)
[2023-12-30] MEDS: FUROSEMIDE INJ 20 MG/2 ML VIAL IV ONE (22:03)
[2023-12-30] MEDS: AMIODARONE / D5W 360 MG/200 ML BAG IV SCH (22:06)
[2023-12-30 22:12] LABS: Appearance Urine Clear (Clear); Bacteria Urine Automated None Seen (None Seen); Bilirubin Urine Negative (Negative); Blood Urine Negative (Negative); Color Urine Yellow; Epithelial Cell Urine Auto 0-2 /hpf (0-2); Glucose Urine UA Negative (Negative); Ketones Urine Trace (Negative); Leukocyte Esterase Urine Negative (Negative); Nitrite Urine Negative (Negative); Protein Urine 1+ (Negative); RBC Urine Automated 0-2 /hpf (0-2); Specific Gravity Urine > 1.045 (1.000-1.030); Sperm Urine Present (None Prsent); Urobilinogen Urine Negative (Negative); WBC Urine Automated 0-5 /hpf (0-5); pH Urine 5.5 (4.5-7.5)
[2023-12-31 00:14] LABS: ANTI-Xa, UFH(UnfractionatedHep 0.18 IU/ml (0.3-0.7)
[2023-12-31] MEDS: HEPARIN SOD (PORCINE) 1000 UNIT/ML IV ONE (01:09)
[2023-12-31 05:03] LABS: Albumin Level 3.4 gm/dl (3.4-5.0); Bilirubin Direct 0.2 mg/dl (0-0.2); Bilirubin,Total 0.5 mg/dl (0.2-1.0); Total Protein 5.5 gm/dl (6.0-8.3)
[2023-12-31 05:15] LABS: ANTI-Xa, UFH(UnfractionatedHep 0.59 IU/ml (0.3-0.7); INR 1.2 (0.9-1.1); Prothrombin Time 13.2 Seconds (9.0-12.0)
[2023-12-31 07:10] LABS: BUN Creatinine Ratio 13.9 (10-20); Calcium 8.3 mg/dl (8.6-10.3); Creatinine Clr Calc Pharmacy 104.1 ml/min; Potassium 5.1 mmol/L (3.5-5.1)
[2023-12-31 07:11] LABS: Chol HDL Ratio 2.9 (0-5); Magnesium 2.3 mg/dl (1.7-2.4); Phosphorus 4.3 mg/dl (2.5-4.9)
[2023-12-31 07:31] LABS: Estimated Average Glucose 120 mg/dl; Hemoglobin A1C 5.8 % (4.5-5.6)
[2023-12-31] MEDS: ICU ELECTROLYTE REPLACEMENT PROTOCOL SCH (07:36)
--- NOTE | 2023-12-31 07:59 | Critical Care Progress Note ---
Date of Service December 31, 2023 Assessment & Plan (1) Wide-complex tachycardia: (2) Atrial fibrillation with rapid ventricular response: (3) Obesity: (4) Heart enlarged: (5) Elevated LFTs: (6) Bilateral pleural effusion: Plan Reason Critically Ill: 53 YOM presents to [facility] with wide complex tachycardia with HR >200s, stabilized on amiodarone and esmolol infusion. ICU for hemodynamic following, drip titration, and symptom managment. Neuro - No acute needs CAM ICU: NEGATIVE Cardiac - Afib with RVR, Wide Complex Tachycardia, Enlarged heart- which is likely new onset HF - Patient presented with wide complex tachycardia- sustained VT vs. Afib with abbarancy, following stabilizing his HR afib is predominant rhythm - Continue heparin infusion as we do not know how long patient has been in this rhythm -Continue with amiodarone drip - If hypotension occurs add on Neosynepherine -Keep potassium greater than 4, magnesium greater than 2, phosphorus greater than 3 - TSH within normal limit - Enlarged heart with likely new onset HF - as he is with pulmonary edema, pleural effusions and +2 edema to lower extremities bilateral to just below knees- this is likely undiagnosed HF - BNP 257 - Does not appear to be ischemic related as no STEMI noted on ECGs and negative HsCTNI - Likely related to obesity and other comorbid conditions associated - lipid panel in am - HGB A1c in am - consider consult to sleep medicine for SHILPI evaluation with body habitus Respiratory - Pleural effusions, enlarged mediastinal lymphnodes - Likely related to HF - Reports lifelong non-smoker - likely reactive - CTA not conclusive for PE rule out - however he is on room air without hypoxia and regardless is anticoagulated for afib CTA chest 12/30/2023 personally reviewed: Motion degraded study Patchy alveolar opacities in the upper lobes, likely pulmonary edema Bilateral pleural effusion, right greater than left Cardiomegaly No significant mediastinal lymphadenopathy GI - Elevated LFTS, - At this time likely cause is fatty liver disease vs. CHF or combination of these - trend LFTS in am - consider further imaging if don't improve with management of HF RENAL/LYTES - Hypomag - Replete electrolytes per ICU protocol - No acute needs at this time ENDO - Elevated serum glucose without diagnosis of diabetes - HGBa1C 5.8 - ICU hyper/hypoglycemic protocol - TSH 3.11, within normal limit HEME - No acute needs ID - No concern for infective etiology at this time - Mild leukocytosis and NLR of 3:1- likely stress related response- follow clinically --Prophylaxis VTE: Heparin GI: None Lines: Peripheral Diet: Cardiac Plan: In/out: +914, urine output 900 mL I saw the patient on metoprolol 25 mg twice daily and titrate it higher to keep heart rate less than 110 Continue with heparin drip 40 mg of Lasix will be given to the patient today Patient does have moderate right and minimal pleural effusion, he is not in respiratory distress, I would recommend just diuresing him. No indication for thoracentesis right now Probability of SHILPI, trial of CPAP in the hospital. Polysomnography as an outpatient Will await for patient to be seen with cardiology to decide disposition Please note the above document was generated using voice recognition software. It may contain grammatical, syntax or spelling errors.Any formal questions or concerns about the content, text or information contained within the body of this dictation should be directly addressed to the provider for clarification. Admission and Anticipated Discharge Date Admission Date: December 30, 2023 Subjective Patient seen and examined at bedside. No acute distress, no adverse events overnight His heart rate was in the high 1 teens to low 120s. He was not in any respiratory distress. No shortness of breath Denied any chest pain, no headache, no nausea, no vomiting Is n.p.o. for possible procedure today. Was on heparin drip as well as amiodarone drip Review of Systems 2 Review of Systems: All systems reviewed & are unremarkable except as noted in Subjective Physical Exam 2 Physical Exam: Constitutional: No acute distress HEENT: EOMI, PERRLA Respiratory system: Good air entry bilaterally, no wheeze, no rhonchi, mild crackles bilaterally CVS: S1-S2 positive, no murmurs or gallops Abdomen: Soft, nontender, nondistended, positive bowel sounds x4, obese Extremities: +2 pulses bilaterally radialis/ dorsalis pedis, no cyanosis, +3 pitting edema bilateral lower extremity Neuro: Awake alert oriented x3 Psych: Normal mood and affect G/U: No Cavanaugh Skin: no rashes, warm and dry Lymphatic: no cervical or axillary lymphadenopathy Results & Data Results & Data Vital Signs (Past 12 Hours) Vital Signs Temp Pulse Pulse Resp BP BP Pulse Ox 12/31/23 07:46 113 H 12/31/23 06:30 126/90 12/31/23 06:15 124 H 20 96 12/31/23 06:03 110 H 21 91 12/31/23 06:01 96/80 L 12/31/23 06:01 96/80 L 12/31/23 06:01 96/80 L 12/31/23 05:54 112 H 22 94 12/31/23 05:39 118 H 22 94 12/31/23 05:03 107/81 12/31/23 05:03 107/81 12/31/23 05:03 107/81 12/31/23 05:03 107 H 26 H 93 12/31/23 05:01 133/114 H 12/31/23 05:01 133/114 H 12/31/23 05:00 120 H 21 90 12/31/23 04:30 125/100 12/31/23 04:30 112 H 20 94 12/31/23 04:12 110 H 25 H 93 12/31/23 04:00 115/98 12/31/23 03:45 113 H 21 95 12/31/23 03:34 116/94 12/31/23 03:33 111 H 18 94 12/31/23 03:30 125 H 27 H 85 L 12/31/23 03:09 102 H 23 91 12/31/23 03:01 136/85 12/31/23 02:51 111 H 19 92 12/31/23 02:39 117 H 20 90 12/31/23 02:31 123/87 12/31/23 02:31 123/87 12/31/23 02:24 112 H 25 H 91 12/31/23 02:15 108 H 18 89 L 12/31/23 02:00 115/98 12/31/23 01:51 116 H 32 H 94 12/31/23 01:30 118 H 23 94 12/31/23 01:03 112 H 24 94 12/31/23 01:00 103/87 12/31/23 00:51 111 H 22 95 12/31/23 00:45 115 H 19 95 12/31/23 00:31 111/85 12/31/23 00:24 120 H 21 94 12/31/23 00:13 113 H 12/31/23 00:06 101 H 18 95 12/31/23 00:00 120/91 12/31/23 00:00 119 H 12/30/23 23:00 36.7 C 132 H 18 80/64 L 96 12/30/23 21:01 102/73 12/30/23 21:00 131 H 20 99 12/30/23 20:47 159/81 H 12/30/23 20:37 129 H 12/30/23 20:30 129 H 22 96 12/30/23 20:09 150 H 19 96 12/30/23 20:01 80/64 L O2 Del Method 12/31/23 07:46 12/31/23 06:30 12/31/23 06:15 12/31/23 06:03 12/31/23 06:01 12/31/23 06:01 12/31/23 06:01 12/31/23 05:54 12/31/23 05:39 12/31/23 05:03 12/31/23 05:03 12/31/23 05:03 12/31/23 05:03 12/31/23 05:01 12/31/23 05:01 12/31/23 05:00 12/31/23 04:30 12/31/23 04:30 12/31/23 04:12 12/31/23 04:00 12/31/23 03:45 12/31/23 03:34 12/31/23 03:33 12/31/23 03:30 12/31/23 03:09 12/31/23 03:01 12/31/23 02:51 12/31/23 02:39 12/31/23 02:31 12/31/23 02:31 12/31/23 02:24 12/31/23 02:15 12/31/23 02:00 12/31/23 01:51 12/31/23 01:30 12/31/23 01:03 12/31/23 01:00 12/31/23 00:51 12/31/23 00:45 12/31/23 00:31 12/31/23 00:24 12/31/23 00:13 12/31/23 00:06 12/31/23 00:00 12/31/23 00:00 12/30/23 23:00 Room Air 12/30/23 21:01 12/30/23 21:00 12/30/23 20:47 12/30/23 20:37 12/30/23 20:30 12/30/23 20:09 12/30/23 20:01 Laboratory Results 12/30/23 16:17 12/31/23 04:14 Coding Level of Care Code 26382 SUB INP/OBS CARE 3/50MIN Diagnoses Wide-complex tachycardia R00.0 Atrial fibrillation with rapid ventricular response I48.91 Obesity E66.9 Heart enlarged I51.7 Elevated LFTs R79.89 Bilateral pleural effusion J90
[2023-12-31 09:50] LABS: iSTAT Blood Urea Nitrogen 17 mg/dl (7-18); iSTAT Carbon Dioxide 20 mmol/L (24-31); iSTAT Chloride 103 mmol/L (101-112); iSTAT Glucose 125 mg/dl (70-99); iSTAT Hematocrit 51 % (42-52); iSTAT Hemoglobin 17.3 g/dl (14.0-18.0); iSTAT Ionized Calcium 1.11 mmol/l (1.12-1.32); iSTAT Potassium 3.8 mmol/L (3.3-5.0); iSTAT Sodium 137 mmol/L (135-144)
[2023-12-31] MEDS: METOPROLOL TARTRATE 25 MG TAB PO SCH (10:08)
[2023-12-31] MEDS: CALCIUM GLUCONATE 1,000 MG/60 ML BAG IV STA (10:08)
[2023-12-31] MEDS: FUROSEMIDE 40 MG/4 ML VIAL IV ONE (11:24)
--- NOTE | 2023-12-31 11:37 | XCELERA ---
[id number] [id number]
--- NOTE | 2023-12-31 13:31 | Hospitalist Progress Note ---
Date of Service December 31, 2023 Assessment & Plan (1) Atrial fibrillation with rapid ventricular response: (2) Acute on chronic systolic heart failure: (3) Wide-complex tachycardia: (4) Prediabetes: (5) Pulmonary hypertension: (6) Morbid obesity: (7) Suspected sleep apnea: (8) Bilateral pleural effusion: Plan Patient remains critically ill with atrial fibrillation and rapid ventricular response and acute on chronic heart failure. Communication with cardiology, continue with IV amiodarone loading, start oral beta-art, discussed possible TAMRA cardioversion with patient. Okay with transfer to PCU Communication with parachute panel joiner, okay with transfer to PCU Can start diet, no intervention/procedures planned until at least tomorrow Continue diuresis with IV Lasix Titrate metoprolol, using short acting metoprolol at this time, transition to metoprolol succinate for goal-directed medical therapy for CHF when rates are controlled Start Jardiance Start Entresto Hold Aldactone at this time, potassium slightly elevated Patient will need cardiac cath at some point for ischemic evaluation Case management for discharge planning 54 minutes spent on coordinating care, communication with medical team, care at the bedside, review of EMR Admission and Anticipated Discharge Date Admission Date: December 30, 2023 Subjective Patient states that his shortness of breath is significantly improved. No chest pain. Extremely scared and anxious about his overall medical condition and his heart condition. Physical Exam Physical Exam: Constitutional: Alert, nontoxic, no acute distress HEENT: Mucous membranes moist. Lungs: Decreased breath sounds at bases, Rales at bases, no wheezes CV: S1-S2, tachycardic, irregular irregular Abdomen: Soft, nontender, nondistended Extremities: +2 pitting edema Neuro: No focal deficits Psych: Cooperative, normal mood, anxious Results & Data Results & Data Vital Signs (Past 12 Hours) Vital Signs Pulse Resp BP Pulse Ox O2 Del Method 12/31/23 08:42 135/107 H 12/31/23 08:39 Room Air 12/31/23 08:24 128 H 21 123/93 100 12/31/23 08:00 131 H 31 H 94 12/31/23 07:46 113 H 12/31/23 07:31 122/86 12/31/23 07:09 128 H 24 114/91 93 12/31/23 06:30 126/90 12/31/23 06:15 124 H 20 96 12/31/23 06:03 110 H 21 91 12/31/23 06:01 96/80 L 12/31/23 06:01 96/80 L 12/31/23 06:01 96/80 L 12/31/23 05:54 112 H 22 94 12/31/23 05:39 118 H 22 94 12/31/23 05:03 107/81 12/31/23 05:03 107/81 12/31/23 05:03 107/81 12/31/23 05:03 107 H 26 H 93 12/31/23 05:01 133/114 H 12/31/23 05:01 133/114 H 12/31/23 05:00 120 H 21 90 12/31/23 04:30 125/100 12/31/23 04:30 112 H 20 94 12/31/23 04:12 110 H 25 H 93 12/31/23 04:00 115/98 12/31/23 03:45 113 H 21 95 12/31/23 03:34 116/94 12/31/23 03:33 111 H 18 94 12/31/23 03:30 125 H 27 H 85 L 12/31/23 03:09 102 H 23 91 12/31/23 03:01 136/85 12/31/23 02:51 111 H 19 92 12/31/23 02:39 117 H 20 90 12/31/23 02:31 123/87 12/31/23 02:31 123/87 12/31/23 02:24 112 H 25 H 91 12/31/23 02:15 108 H 18 89 L 12/31/23 02:00 115/98 12/31/23 01:51 116 H 32 H 94 12/31/23 01:30 118 H 23 94 Diagnostic Findings Reviewed imaging, laboratory and diagnostic studies. Pertinent findings as below. WBCs 11.4, hemoglobin 15.8 Electrolytes within normal range Creatinine 1.1 Hemoglobin A1c 5.8% Echocardiogram Shows ejection fraction 30 to 35%, mildly reduced RV function, borderline pulmonary hypertension
--- NOTE | 2023-12-31 14:22 | Cardiology Progress Note ---
Date of Service December 31, 2023 Assessment & Plan (1) Acute HFrEF (heart failure with reduced ejection fraction): Plan: 2. Atrial fibrillation with RVR 3. Wide-complex tachycardiasuspected presenting monomorphic VT 4. Mild to moderate mitral regurgitation 5. Mild coronary artery calcifications 6. Mildly dilated RV/dysfunction with borderline pulmonary hypertension. 7. Class III obesity/suspected SHILPI Improved rate control on IV amiodarone and now p.o. beta-art. Persistent congestion on exam but responding to IV diuretics this morning Echo today shows moderate to severe global LV dysfunction along with mild RV dysfunction. Etiology of patient's newly diagnosed cardiomyopathy unclear. tachycardia- induced a possibility but seems less likely. Does have ASCVD risk factors and coronary artery calcification but no objective findings of ACS. Recommend continued diuresis, attempt at rhythm control and further ischemic evaluation at some point. We discussed TAMRA cardioversion possibly tomorrow. Patient somewhat anxious about this and will discuss further with his brother. Possible cardiac cath tomorrow if agreeable For today recommend continued rate control, metoprolol increased to 50 mg twice daily continue IV amiodarone, likely transition to p.o. tomorrow Continue heparin infusion. Transition to NOAC postcardiac testing Start GDMT for new cardiomyopathystarted on Entresto/Jardiance today Strict I's and O's and daily weights. Post above cardiac testing will get further opinion from EP regarding presenting apparent monomorphic VT. Will follow Admission and Anticipated Discharge Date Admission Date: December 30, 2023 Subjective Denies any chest pain. Denies significant shortness of breath or presyncope. No palpitations. Overall remains very anxious about heart condition and possible procedures. Esmolol discontinued overnight. Started on p.o. metoprolol remains on amiodarone infusion. Given 40 of IV Lasix this morning. -1900 thus far Telemetry reviewedremains in A-fib with RVR heart rates ranging from 110s to 130s primarily Review of Systems Review of Systems: All systems reviewed & are unremarkable except as noted in HPI & below Physical Exam Physical Exam: General: Comfortable but anxious HEENT: Sclerae anicteric Lungs: Clear with decreased breath sounds at bases right greater than left Cardiac: Tachycardic, irregular irregular, no appreciable murmurs Vascular: 2+ radial on right, diminished on left Abdomen: Soft, nontender Extremities: Well perfused, 1+ lower extremity edema extending to mid shins, diminished DP pulses Neuro: Nonfocal Psych: Alert orient x3, normal affect and mood Results & Data Vital Signs (Past 12 Hours) Vital Signs Pulse Resp BP Pulse Ox O2 Del Method 12/31/23 12:03 124 H 27 H 95 12/31/23 12:00 117/94 12/31/23 11:30 120/100 12/31/23 11:00 139 H 20 93 12/31/23 11:00 125/88 12/31/23 10:30 140/105 H 12/31/23 10:30 122 H 20 96 12/31/23 10:00 131/100 12/31/23 10:00 129 H 22 97 12/31/23 09:06 120 H 19 96 12/31/23 09:01 123/85 12/31/23 08:42 135/107 H 12/31/23 08:39 Room Air 12/31/23 08:24 128 H 21 123/93 100 12/31/23 08:00 131 H 31 H 94 12/31/23 07:46 113 H 12/31/23 07:31 122/86 12/31/23 07:09 128 H 24 114/91 93 12/31/23 06:30 126/90 12/31/23 06:15 124 H 20 96 12/31/23 06:03 110 H 21 91 12/31/23 06:01 96/80 L 12/31/23 06:01 96/80 L 12/31/23 06:01 96/80 L 12/31/23 05:54 112 H 22 94 12/31/23 05:39 118 H 22 94 12/31/23 05:03 107/81 12/31/23 05:03 107/81 12/31/23 05:03 107/81 12/31/23 05:03 107 H 26 H 93 12/31/23 05:01 133/114 H 12/31/23 05:01 133/114 H 12/31/23 05:00 120 H 21 90 12/31/23 04:30 125/100 12/31/23 04:30 112 H 20 94 12/31/23 04:12 110 H 25 H 93 12/31/23 04:00 115/98 12/31/23 03:45 113 H 21 95 12/31/23 03:34 116/94 12/31/23 03:33 111 H 18 94 12/31/23 03:30 125 H 27 H 85 L 12/31/23 03:09 102 H 23 91 12/31/23 03:01 136/85 12/31/23 02:51 111 H 19 92 12/31/23 02:39 117 H 20 90 12/31/23 02:31 123/87 12/31/23 02:31 123/87 12/31/23 02:24 112 H 25 H 91 12/31/23 02:15 108 H 18 89 L PG Care Time/CCT Total # of Minutes Spent Total Time Spent with Patient: Total time spent is greater than 50% in coordination of care (as documented) at patient's floor/unit and/or counseling patient: Coding Level of Care Code 29682 SUB INP/OBS CARE 3/50MIN Diagnoses Acute HFrEF (heart failure with reduced ejection fraction) I50.21
[2023-12-31] MEDS ORDERED: METOPROLOL TARTRATE 1 MG/ML VIAL IV PRN (15:38)
[2023-12-31] MEDS: METOPROLOL TARTRATE 25 MG TAB PO STA (16:48)
[2023-12-31] MEDS: LORazepam 1 MG TAB PO PRN (20:24)
[2023-12-31] MEDS: METOPROLOL TARTRATE 50 MG TAB PO SCH (20:25)
[2023-12-31] MEDS: VALSARTAN/SACUBITRIL 26/24MG TAB PO SCH (20:25)
[2024-01-01 05:56] LABS: ANTI-Xa, UFH(UnfractionatedHep 0.21 IU/ml (0.3-0.7)
[2024-01-01 06:14] LABS: Calcium 7.9 mg/dl (8.6-10.3); Magnesium 1.9 mg/dl (1.7-2.4); Potassium 3.6 mmol/L (3.5-5.1)
[2024-01-01 06:22] LABS: BUN Creatinine Ratio 16.2 (10-20); Creatinine Clr Calc Pharmacy 106.9 ml/min; Phosphorus 3.8 mg/dl (2.5-4.9)
[2024-01-01] MEDS ORDERED: PROPOFOL IV EMULSION 10 MG/ML 20 ML VIAL IV ONE ×2 (06:52→08:16)
--- NOTE | 2024-01-01 07:34 | Anesthesiology Consultation ---
Date of Service January 01, 2024 Assessment & Plan ASA ASA3 Proposed Anesthesia Anesthesia Type: MAC Risk / Benefits Reviewed With: PT / POA / Parent / Guardian, Accepts Plan and Informed Consent Obtained History Surgery Operation Date: 01/01/24 07:30 Proposed Procedures p 5 - Tree Bhagat MD s Trans-Esophageal Echocardiogram with Anesthesia - Tree Bhagat MD Operation Date: 01/01/24 07:30 Proposed Procedures p Transesophageal Echo w/Anesthesia - Tree Bhagat MD s Cardioversion Trip Motor Operator w/Anesthesia - Tree Bhagat MD Height/Weight Height: 5 ft 10 in Weight: 136.1 kg Allergies Allergy/AdvReac Type Severity Reaction Status Date / Time No Known Allergies Allergy Unverified 12/30/23 16:39 Medications Home Medications Medication Instructions Recorded Confirmed Last Taken No Known Home Medications 12/30/23 12/30/23 Unknown Active Medications Generic Name Dose Route Start Last Admin Trade Name Freq PRN Reason Stop Dose Admin Amiodarone HCl/Dextrose 360 mg in 200 mls @ 16.667 mls/hr 12/30/23 22:15 12/31/23 22:33 Nexterone / D5w IV 01/29/24 22:14 0.5 mg/min .Q12H PIEDAD 16.7 mls/hr Administration 0.5 MG/MIN Heparin Sodium/Dextrose 25,000 units in 500 mls @ 24 mls/hr 12/30/23 17:45 01/01/24 06:58 Heparin Sodium/Dextrose IV 01/29/24 17:44 1,300 units/hr .[id number] PIEDAD 26 mls/hr Titration Protocol 1,200 UNITS/HR Lorazepam 1 mg 12/31/23 15:38 12/31/23 20:24 Lorazepam 1 Mg Tab PO 01/30/24 15:37 1 mg Q8H PRN Administration Anxiety/Insomnia Metoprolol Tartrate 50 mg 12/31/23 21:00 12/31/23 20:25 Metoprolol Tartrate 50 Mg Tab PO 01/30/24 20:59 50 mg BID PIEDAD Administration Sacubitril/Valsartan 1 tab 12/31/23 21:00 12/31/23 20:25 Valsartan/Sacubitril 26/24mg Tab PO 01/30/24 20:59 1 tab BID PIEDAD Administration NPO Date Last Intake of Fluids: 12/31/23 Time Last Intake of Fluids: 23:59 Date Last Intake of Solids: 12/31/23 Time Last Intake of Solids: 23:59 Exercise / Class Metabolic Activity II 4-5 Yardwork/Stairs/Walk up hill Past Anesthesia History No Hx of Anesthesia Complications and No Family Hx of Anesthesia Complications History of PONV No Hx of PONV and No Hx of Motion Sickness Social History Smoking Status: Never smoker Do You Dip or Chew Tobacco: Yes Hx Alcohol Use: Yes alcohol intake frequency: holidays/special occasions only Hx Substance Use: No substance use type: does not use Physical Exam Vital Signs Last Vital Signs Temp 36.7 C 01/01/24 03:28 Pulse 108 H 01/01/24 03:28 Resp 18 01/01/24 03:28 BP 111/77 01/01/24 03:28 Pulse Ox 94 01/01/24 03:28 O2 Del Method Room Air 01/01/24 03:28 Constitutional no acute distress ENMT Mouth: no dentition abnormality Thyromental Distance: > or= 3.5 Finger Breadths Mallampati Class: III Neck normal visual inspection Respiratory normal respiratory effort; no respiratory distress Auscultation: lungs clear to auscultation bilaterally Cardiovascular Rate/Rhythm: regular rate; + abnormal rhythm Heart Sounds: no murmur Musculoskeletal Spine: normal cervical ROM Psychiatric Orientation: alert and oriented x 3 Testing Laboratory Results 12/30/23 16:17 01/01/24 05:22 PT 13.2 Seconds (9.0-12.0) H 12/31/23 04:14 INR 1.2 (0.9-1.1) H 12/31/23 04:14 APTT 26 Seconds (21-31) 12/30/23 17:45 Hemoglobin A1c 5.8 % (4.5-5.6) H 12/31/23 04:14 Urine Color Yellow 12/30/23 Unknown Urine Appearance Clear (Clear) 12/30/23 Unknown Urine pH 5.5 (4.5-7.5) 12/30/23 Unknown Ur Specific Vici > 1.045 (1.000-1.030) H 12/30/23 Unknown Urine Protein 1+ (Negative) H 12/30/23 Unknown Urine Glucose (UA) Negative (Negative) 12/30/23 Unknown Urine Ketones Trace (Negative) H 12/30/23 Unknown Urine Nitrite Negative (Negative) 12/30/23 Unknown Ur Leukocyte Esterase Negative (Negative) 12/30/23 Unknown Urine WBC (Auto) 0-5 /hpf (0-5) 12/30/23 Unknown Urine RBC (Auto) 0-2 /hpf (0-2) 12/30/23 Unknown U Hyaline Cast (Auto) 3-5 /lpf (0-2) H 12/30/23 Unknown U Epithel Cells (Auto) 0-2 /hpf (0-2) 12/30/23 Unknown Urine Bacteria (Auto) None Seen (None Seen) 12/30/23 Unknown Day of Procedure Evaluation. Date of Surgery January 01, 2024 Height/Weight Height: 5 ft 10 in Weight: 136.1 kg Vital Signs Last Vital Signs Temp 36.7 C 01/01/24 03:28 Pulse 108 H 01/01/24 03:28 Resp 18 01/01/24 03:28 BP 111/77 01/01/24 03:28 Pulse Ox 94 01/01/24 03:28 O2 Del Method Room Air 01/01/24 03:28 Allergies Allergy/AdvReac Type Severity Reaction Status Date / Time No Known Allergies Allergy Unverified 12/30/23 16:39 Medications Home Medications Medication Instructions Recorded Confirmed Last Taken No Known Home Medications 12/30/23 12/30/23 Unknown Active Medications Generic Name Dose Route Start Last Admin Trade Name Freq PRN Reason Stop Dose Admin Amiodarone HCl/Dextrose 360 mg in 200 mls @ 16.667 mls/hr 12/30/23 22:15 12/31/23 22:33 Nexterone / D5w IV 01/29/24 22:14 0.5 mg/min .Q12H PIEDAD 16.7 mls/hr Administration 0.5 MG/MIN Heparin Sodium/Dextrose 25,000 units in 500 mls @ 24 mls/hr 12/30/23 17:45 01/01/24 06:58 Heparin Sodium/Dextrose IV 01/29/24 17:44 1,300 units/hr .[id number] PIEDAD 26 mls/hr Titration Protocol 1,200 UNITS/HR Lorazepam 1 mg 12/31/23 15:38 12/31/23 20:24 Lorazepam 1 Mg Tab PO 01/30/24 15:37 1 mg Q8H PRN Administration Anxiety/Insomnia Metoprolol Tartrate 50 mg 12/31/23 21:00 12/31/23 20:25 Metoprolol Tartrate 50 Mg Tab PO 01/30/24 20:59 50 mg BID PIEDAD Administration Sacubitril/Valsartan 1 tab 12/31/23 21:00 12/31/23 20:25 Valsartan/Sacubitril 26/24mg Tab PO 01/30/24 20:59 1 tab BID PIEDAD Administration Past Anesthesia History No Hx of Anesthesia Complications and No Family Hx of Anesthesia Complications History of PONV No Hx of PONV and No Hx of Motion Sickness NPO Date Last Intake of Fluids: 12/31/23 Time Last Intake of Fluids: 23:59 Date Last Intake of Solids: 12/31/23 Time Last Intake of Solids: 23:59 Home Medications Home Medications Medication Instructions Recorded Confirmed Last Taken No Known Home Medications 12/30/23 12/30/23 Unknown Active Medications Generic Name Dose Route Start Last Admin Trade Name Freq PRN Reason Stop Dose Admin Amiodarone HCl/Dextrose 360 mg in 200 mls @ 16.667 mls/hr 12/30/23 22:15 12/31/23 22:33 Nexterone / D5w IV 01/29/24 22:14 0.5 mg/min .Q12H PIEDAD 16.7 mls/hr Administration 0.5 MG/MIN Heparin Sodium/Dextrose 25,000 units in 500 mls @ 24 mls/hr 12/30/23 17:45 01/01/24 06:58 Heparin Sodium/Dextrose IV 01/29/24 17:44 1,300 units/hr .[id number] PIEDAD 26 mls/hr Titration Protocol 1,200 UNITS/HR Lorazepam 1 mg 12/31/23 15:38 12/31/23 20:24 Lorazepam 1 Mg Tab PO 01/30/24 15:37 1 mg Q8H PRN Administration Anxiety/Insomnia Metoprolol Tartrate 50 mg 12/31/23 21:00 12/31/23 20:25 Metoprolol Tartrate 50 Mg Tab PO 01/30/24 20:59 50 mg BID PIEDAD Administration Sacubitril/Valsartan 1 tab 12/31/23 21:00 12/31/23 20:25 Valsartan/Sacubitril 26/24mg Tab PO 01/30/24 20:59 1 tab BID PIEDAD Administration Exercise / Class Metabolic Activity Metabolic Activity: II 4-5 Yardwork/Stairs/Walk up hill Physical Exam Constitutional: no acute distress Mouth: no dentition abnormality Thyromental Distance: > or= 3.5 Finger Breadths Mallampati Class: III Neck: + visual inspection normal Respiratory: + respiratory effort normal and + clear to auscultation bilaterally; no respiratory distress Cardiovascular: + regular rate; no regular rhythm and no murmur Musculoskeletal: no limited cervical ROM Psychiatric: + alert and + oriented x 3 ASA ASA3 Proposed Anesthesia Proposed Anesthesia: MAC Risk / Benefits Reviewed With: PT / POA / Parent / Guardian, Accepts Plan and Informed Consent Obtained
--- NOTE | 2024-01-01 08:06 | Pre Anesthesia Assessment ---
Date of Service January 01, 2024 Pre Sedation Assessment Vital Signs Temp Pulse Pulse Resp BP BP BP 01/01/24 07:38 98.1 F 139 H 14 113/112 H 01/01/24 03:28 98.1 F 108 H 18 111/77 12/31/23 22:57 97.9 F 118 H 20 131/89 12/31/23 20:25 12/31/23 18:20 127 H 24 12/31/23 17:00 114/85 12/31/23 16:58 127 H 12/31/23 16:02 136 H 16 12/31/23 16:00 122/91 12/31/23 15:10 129/95 12/31/23 15:03 122/102 H 12/31/23 14:57 155 H 26 H 12/31/23 14:00 129 H 18 12/31/23 14:00 110/92 12/31/23 12:03 124 H 27 H 12/31/23 12:00 117/94 12/31/23 11:30 120/100 12/31/23 11:00 139 H 20 12/31/23 11:00 125/88 12/31/23 10:30 140/105 H 12/31/23 10:30 122 H 20 12/31/23 10:00 131/100 12/31/23 10:00 129 H 22 12/31/23 09:06 120 H 19 12/31/23 09:01 123/85 12/31/23 08:42 135/107 H 12/31/23 08:39 12/31/23 08:24 128 H 21 123/93 Pulse Ox O2 Del Method 01/01/24 07:38 90 Room Air 01/01/24 03:28 94 Room Air 12/31/23 22:57 94 Room Air 12/31/23 20:25 Room Air 12/31/23 18:20 93 12/31/23 17:00 12/31/23 16:58 12/31/23 16:02 93 12/31/23 16:00 12/31/23 15:10 12/31/23 15:03 12/31/23 14:57 94 12/31/23 14:00 90 12/31/23 14:00 12/31/23 12:03 95 12/31/23 12:00 12/31/23 11:30 10/08/24 11:00 93 12/31/23 11:00 12/31/23 10:30 12/31/23 10:30 96 12/31/23 10:00 12/31/23 10:00 97 12/31/23 09:06 96 12/31/23 09:01 12/31/23 08:42 12/31/23 08:39 Room Air 12/31/23 08:24 100 Cardiovascular + regular rate Respiratory + respiratory effort normal Pre-Sedation Airway Assessment Smoking Status: Never smoker Hx Sleep Apnea: No Short, Thick Neck: No Thyromental Distance: > or= 3.5 Finger Breadths Oral Cavity: + WNL Mallampati Class: II ASA: ASA3 NPO Status Date of Last Intake of Fluids: 12/31/23 Time of Last Intake of Fluids: 21:00 Date of Last Intake of Solid Food: 12/31/23 Procedure Planning Contraindications for Sedation: none Current Medications Reviewed: Yes Notes The planned sedation has been discussed with the patient. Informed Consent was obtained. I have identified the patient, determined the appropriateness of sedation and have assessed the patient immediately prior to the procedure. All medicine(s) and interventions are by my order.
[2024-01-01] MEDS: 0.2 MICRON FILTER SET 1 EACH IV STA (09:48)
[2024-01-01] MEDS: NITROGLYCERIN/D5W 100MCG/ML 20ML SYR ONE (09:49)
[2024-01-01] MEDS: niCARdipine HCL INJ 2.5 MG/ML 10 ML AMP ONE (09:49)
[2024-01-01] MEDS: AMIODARONE 360MG / 200ML D5W (CATH LAB USE ONLY) IV ONE (09:50)
[2024-01-01] MEDS: fentaNYL citrate PF 100 MCG/2 ML VIAL ONE (09:51)
[2024-01-01] MEDS: MIDAZOLAM HCL 1 MG/ML 2ML VIAL ONE (09:57)
[2024-01-01] MEDS: OPTIRAY 350 ONE (09:58)
--- NOTE | 2024-01-01 09:58 | Post Anesthesia Assessment ---
Date of Service January 01, 2024 Post Sedation Assessment Vital Signs Temp Pulse Pulse Resp BP BP BP 01/01/24 09:05 77 14 107/72 01/01/24 08:50 75 14 97/69 L 01/01/24 07:38 98.1 F 139 H 14 113/112 H 01/01/24 07:00 01/01/24 03:28 98.1 F 108 H 18 111/77 12/31/23 22:57 97.9 F 118 H 20 131/89 12/31/23 20:25 12/31/23 18:20 127 H 24 12/31/23 17:00 114/85 12/31/23 16:58 127 H 12/31/23 16:02 136 H 16 12/31/23 16:00 122/91 12/31/23 15:10 129/95 12/31/23 15:03 122/102 H 12/31/23 14:57 155 H 26 H 12/31/23 14:00 129 H 18 12/31/23 14:00 110/92 12/31/23 12:03 124 H 27 H 12/31/23 12:00 117/94 12/31/23 11:30 120/100 12/31/23 11:00 139 H 20 12/31/23 11:00 125/88 12/31/23 10:30 140/105 H 12/31/23 10:30 122 H 20 12/31/23 10:00 131/100 12/31/23 10:00 129 H 22 Pulse Ox O2 Del Method 01/01/24 09:05 95 Room Air 01/01/24 08:50 95 Room Air 01/01/24 07:38 90 Room Air 01/01/24 07:00 Room Air 01/01/24 03:28 94 Room Air 12/31/23 22:57 94 Room Air 12/31/23 20:25 Room Air 12/31/23 18:20 93 12/31/23 17:00 12/31/23 16:58 12/31/23 16:02 93 12/31/23 16:00 12/31/23 15:10 12/31/23 15:03 12/31/23 14:57 94 12/31/23 14:00 90 12/31/23 14:00 12/31/23 12:03 95 12/31/23 12:00 12/31/23 11:30 12/31/23 11:00 93 12/31/23 11:00 12/31/23 10:30 12/31/23 10:30 96 12/31/23 10:00 12/31/23 10:00 97 Recovery Score Activity: Moves 4 extremities Respiration: Deep Breath/Cough Circulation: +/-20% PreAnes Value Consciousness: Fully Awake Oxygen Saturation: > 92% On Room Air Post Anesthesia Score: 10 Discharge Sedation Level of Care: Fast Track Phase II Post Sedation Plan On clinical assessment, the patient appears to have tolerated the sedation without complications. Patient is recovering as anticipated. Patient will continue to be monitored by nursing and may be discharged when sedation discharge criteria are met per below protocol. Upon Completions of procedure up to 15 minutes continue every 5 minute vital signs and the P.A.R. score; then discharge to a Phase I or Fast Track to Phase II per the following guidelines: * Discharge Patient to appropriate Phase II area if PAR is 8 or greater or return to pre- procedure baseline. The post - procedure orders will be as directed. * If PAR score is less than 8 or not return to pre-procedure baseline then patient will follow Phase I monitoring till PAR is reached for Phase II. The Phase I may be done in procedure room or may call to secure a Phase I area. * If naloxone or flumazenil are used for reversal, hold in Phase I for continued monitoring from when last reversal dose was given for a minimum of 60 minutes or longer pending the nurse and/or physician discretion of patient condition before discharge to Phase II. Please call the Sedation Physician to re-evaluate and complete post-note for discharge to Phase II area. Do NOT discharge from procedure sedation or Phase 1 until post- sedation evaluation note is complete by procedure /sedation MD Sedation Discharge Instructions to be given to the patient at discharge to home.
--- NOTE | 2024-01-01 10:01 | Cardioversion ---
Date of Service January 01, 2024 PG Electrical Cardioversion Rp Electrical Cardioversion Report ELECTRICAL EXTERNAL CARDIOVERSION Indication: Persistent atrial fibrillation with RVR and heart failure Procedure: Sedation by Dr. Lewis with anesthesia using propofol TAMRA done and confirmed no left atrial appendage thrombus Pads placed in AP position Received a single synchronized shock at 200 J Converted to sinus rhythm Patient tolerated procedure well Summary: 1. Successful electrical cardioversion of A-fib with RVR to sinus rhythm. Recommendations: Continue current amiodarone, metoprolol Continue anticoagulation uninterrupted for at least 4 weeks. Coding Level of Care Code 52366 CARDIOVERSION, ELECTIVE Additional Codes Electrical Cardioversion Report ([id number])
--- NOTE | 2024-01-01 10:08 | Cardiac Catheterization ---
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 Clinical evaluation leading to the procedure CAD Presenation: Sx unlikely to be ischemic Heart Failure: NYHA Class: CCS IV Diagnostic Physicians Name: Tree Bhagat MD Closure Device Recommendations: Medical Therapy and/or Counseling Cardiac Cath Procedure Full Procedure Date January 01, 2024 Pre-Procedure Diagnosis Pre-Procedure Diagnosis: CHF, Cardiomyopathy and Arrhythmia AUC Score AUC Score: 7 Post-Procedure Diagnosis Post-Procedure Diagnosis: Elevated Intracardiac Pressures Procedure(s) Performed Procedure(s) Performed: Coronary Angiography and Left Heart Cath Steward/Stewardess Second Tree Bhagat MD Resolute Professional(s) Maris Estimated Blood Loss Estimated Blood Loss: 5 Medication(s) Medication(s): Fentanyl, Heparin, Lidocaine 1%, Nicardipine, Nitroglycerin and Versed Summary of Findings Indication: New cardiomyopathy, ASCVD risk factors, ventricular tachycardia Access: 6 Fr slender right radial artery Catheters: [place], diagnostic JR4 Findings: LM -normal caliber, no significant disease LAD -medium caliber vessel, 20-30% earlymid segment disease just after takeoff of D1, myocardial bridging in latemid segment. Distal vessel without significant disease and tapers prior to apex. Medium D1 without significant disease. Circumflex -dominant, large caliber, mid and distal luminal irregularities. Small, high OM1 without disease. Medium left PLB without disease. Medium left PDA without significant disease. RCA -small, nondominant, no significant disease. LVEDP -29 Arterial Closure: TR band Summary: 1. Minimal nonobstructive coronary artery disease -20-30% earlymid LAD 2. Elevated intracardiac filling pressure (LVEDP 29) Recommendations: Continue IV diuresis Continue GDMT for nonischemic cardiomyopathy Continued ASCVD risk factor modification Hemodynamics Rest Ao:: 102/78/72 Final Ao: 108/75/90 LV: 104/29 Recommendations Recommendations: Medical Therapy and/or Counseling Radiation Exposure (mGy) 1198 Contrast (mls) 90 Anesthesia Moderate 5152-2668 Procedural Complication(s) None Disposition PCU I attest to the content of the Intraoperative Record and any orders documented therein. Any exceptions are noted below. [facility] Card Cath Procedure Codes Cardiac Catheterization Procedure 1: Cardiovascular Cath Procedures: 55386 Coronaries and LHC (+/-LV) Moderate Sedation Procedure 1: Sedation/Anesthesia: 84369 Mod Sedation by the same physician;Init15 Min Child Age 5 & Up PG Care Time/CCT Total # of Minutes Spent Total Time Spent with Patient: Total time spent is greater than 50% in coordination of care (as documented) at patient's floor/unit and/or counseling patient:
--- NOTE | 2024-01-01 10:18 | Cardiology Progress Note ---
Date of Service January 01, 2024 Assessment & Plan (1) Acute HFrEF (heart failure with reduced ejection fraction): Plan: 2. Atrial fibrillation with RVR 3. Wide-complex tachycardiasuspected presenting monomorphic VT 4. Mild to moderate mitral regurgitation 5. Minimal nonobstructive CAD 6. Mildly dilated RV/dysfunction with borderline pulmonary hypertension. 7. Class III obesity/suspected SHILPI Patient underwent successful TAMRA cardioversion today and remains in sinus rhythm. Cardiac catheterization revealed minimal nonobstructive disease. LVEDP remains high at 29. Diuresed well yesterday with stable renal function Plan on continued diuresis, titration of GDMT, AF rhythm control. Additional IV Lasix 40 mg today, target >1 L Can transition IV amiodarone to p.o. 200 mg twice daily Can transition IV heparin to Xarelto today when TR band off Continue current metoprolol 50 mg twice daily, transition to Toprol-XL on discharge Continue current Entresto, Jardiance Start low-dose spironolactone tomorrow if BP allows Strict I's and O's and daily weights. Will follow Admission and Anticipated Discharge Date Admission Date: December 30, 2023 Subjective Denies any chest pain. Denies significant shortness of breath or presyncope. No palpitations. -1500 over last 24 Review of Systems Review of Systems: All systems reviewed & are unremarkable except as noted in HPI & below Physical Exam Physical Exam: General: Comfortable HEENT: Sclerae anicteric Lungs: Clear with decreased breath sounds at bases right greater than left Cardiac: Sinus rhythm post diversion Vascular: TR band in place on right radial artery Abdomen: Soft, nontender Extremities: Well perfused, 1+ lower extremity edema extending to mid shins, diminished DP pulses Neuro: Nonfocal Psych: Alert orient x3, normal affect and mood Results & Data Vital Signs (Past 12 Hours) Vital Signs Temp Pulse Resp BP BP Pulse Ox O2 Del Method 01/01/24 09:05 77 14 107/72 95 Room Air 01/01/24 08:50 75 14 97/69 L 95 Room Air 01/01/24 07:38 98.1 F 139 H 14 113/112 H 90 Room Air 01/01/24 07:00 Room Air 01/01/24 03:28 98.1 F 108 H 18 111/77 94 Room Air 12/31/23 22:57 97.9 F 118 H 20 131/89 94 Room Air PG Care Time/CCT Total # of Minutes Spent Total Time Spent with Patient: Total time spent is greater than 50% in coordination of care (as documented) at patient's floor/unit and/or counseling patient: Coding Level of Care Code 57233 SUB INP/OBS CARE 3/50MIN Diagnoses Acute HFrEF (heart failure with reduced ejection fraction) I50.21
--- NOTE | 2024-01-01 10:43 | XCELERA ---
[id number] [email or web address]\[id number]
[2024-01-01] MEDS: RIVAROXABAN 20 MG TAB PO SCH (11:05)
[2024-01-01] MEDS: AMIODARONE 200 MG TAB PO SCH (11:05)
[2024-01-01] MEDS: FUROSEMIDE 40 MG/4 ML VIAL IV SCH (11:16)
[2024-01-01] MEDS: IODIXANOL (VISIPAQUE) 320 MG/ML 100ML IV ONE (11:20)
[2024-01-01] MEDS: HEPARIN (PORCINE) 1000 UNIT/ML 10 ML (CATH LAB USE ONLY) ONE (11:20)
[2024-01-01] MEDS: BENZOCAINE/TETRACAIN/BUTAM 50 APPLN/5 GM CAN EXT ONE (11:20)
[2024-01-01] MEDS: ASPIRIN 325 MG ECTAB PO ONE (11:21)
[2024-01-01] MEDS: EMPAGLIFLOZIN 10 MG TAB PO SCH (11:29)
--- NOTE | 2024-01-01 12:43 | Hospitalist Progress Note ---
Date of Service January 01, 2024 Assessment & Plan (1) Atrial fibrillation with rapid ventricular response: Plan: Was on IV amiodarone and has been changed to 200 mg twice daily from today Status post successful TAMRA cardioversion with reversion to sinus rhythm Has been on a small dose of beta-art Remains in sinus rhythm and maintaining the rate (2) Acute on chronic systolic heart failure: Plan: Has been receiving intravenous Lasix with ongoing diuresis Echo of the heart showed normal LV wall thickness, EF 30 to 35%, RV mildly dilated with mildly reduced RV function, mild to moderate mitral regurgitation, borderline pulmonary hypertension Appreciate cardiology input and recommendation and has been getting intravenous Lasix for diuresis (3) Wide-complex tachycardia: Plan: Minimal nonobstructive CAD Status post cardiac cath Noted to have minimal nonobstructive disease Plan to continue diuresis, titration of GDMT, A-fib rhythm control has been on Jardiance, beta-art, Entresto and a small dose of spironolactone will be added tomorrow (4) Prediabetes: Plan: Hemoglobin A1c is 5.8 Jardiance has been added (5) Pulmonary hypertension: (6) Morbid obesity: (7) Suspected sleep apnea: (8) Bilateral pleural effusion: Plan DVT prophylaxis on Xarelto CODE STATUS full Admission and Anticipated Discharge Date Admission Date: December 30, 2023 Subjective 01/01/2024 The patient was seen and examined in telemetry unit He is a status post cardioversion with reversion to sinus rhythm Denies any significant symptoms and does not have any cardiac symptoms Will observe tonight Review of Systems Review of Systems: All systems reviewed and are unremarkable except as noted below Physical Exam Physical Exam: Lying in bed without any acute distress but a little anxious from the cardioversion Constitutional: well developed, well nourished, + ill appearing and + obese Eyes: PERRL, conjunctivae normal, anicteric sclerae ENMT: external ear and nose normal, oropharynx normal Neck: trachea midline, no thyromegaly Respiratory: normal respiratory effort, lungs clear to auscultation Cardiovascular: Rate/Rhythm: regular rate and regular rhythm; not tachycardic Heart Sounds: normal S1 and normal S2; no murmur Extremities: + edema ( trace edema bilaterally) Gastrointestinal (Abdomen): Inspection/Auscultation: normal bowel sounds; abdomen not distended Percussion/Palpation: abdomen soft; abdomen nontender Musculoskeletal: No acute arthritis involving any of the joint Neurologic: normal touch/pain/proprioception and moves all extremities; no focal motor deficits Psychiatric: A+Ox3, euthymic affect Lymphatic: no cervical or axillary lymphadenopathy Results & Data Results & Data Vital Signs (Past 12 Hours) Vital Signs Temp Pulse Resp BP BP Pulse Ox O2 Del Method 01/01/24 11:30 78 18 135/96 94 Room Air 01/01/24 11:00 79 18 130/92 96 Room Air 01/01/24 10:45 77 18 117/88 95 Room Air 01/01/24 10:30 78 14 129/80 94 Room Air 01/01/24 10:17 78 14 110/80 94 Room Air 01/01/24 09:05 77 14 107/72 95 Room Air 01/01/24 08:50 75 14 97/69 L 95 Room Air 01/01/24 07:38 36.7 C 139 H 14 113/112 H 90 Room Air 01/01/24 07:00 Room Air 01/01/24 03:28 36.7 C 108 H 18 111/77 94 Room Air Laboratory Results [facility] 01/01/24 05:22 Sodium 139 Potassium 3.6 D Chloride 109 H Carbon Dioxide 22 BUN 18 Creatinine 1.11 Glucose 117 H Calcium 7.9 L Medications Administered Current Inpatient Medications Amiodarone HCl (Amiodarone 200 Mg Tab) 200 mg PO BIDM [facility] Stop: 01/31/24 10:29 Last Admin: 01/01/24 11:05 Dose: 200 mg Empagliflozin (Empagliflozin 10 Mg Tab) 10 mg PO DAILY [facility] Stop: 01/31/24 08:59 Last Admin: 01/01/24 11:29 Dose: 10 mg Furosemide (Furosemide 40 Mg/4 Ml Vial) 40 mg IV DAILY [facility] Stop: 01/31/24 08:59 Last Admin: 01/01/24 11:16 Dose: 40 mg Lorazepam (Lorazepam 1 Mg Tab) 1 mg PO Q8H PRN PRN Reason: Anxiety/Insomnia Stop: 01/30/24 15:37 Last Admin: 12/31/23 20:24 Dose: 1 mg Metoprolol Tartrate (Metoprolol Tartrate 50 Mg Tab) 50 mg PO BID [facility] Stop: 01/30/24 20:59 Last Admin: 01/01/24 11:29 Dose: 50 mg Metoprolol Tartrate (Metoprolol Tartrate 1 Mg/Ml Vial) 5 mg IV Q4H PRN PRN Reason: Tachycardia/ HR>120 Stop: 01/30/24 15:37 Rivaroxaban (Rivaroxaban 20 Mg Tab) 20 mg PO QDD [facility] Stop: 01/31/24 10:29 Last Admin: 01/01/24 11:05 Dose: 20 mg Sacubitril/Valsartan (Valsartan/Sacubitril 26/24mg Tab) 1 tab PO BID [facility] Stop: 01/30/24 20:59 Last Admin: 01/01/24 11:30 Dose: 1 tab
[2024-01-02 06:03] LABS: Basophils # (auto) 0.03 K/uL (0.00-0.20); Basophils % (auto) 0.4 %; Eosinophils # (auto) 0.15 K/uL (0.00-0.50); Eosinophils % (auto) 2.2 %; Hematocrit (blood only) 41.8 % (42.0-52.0); Hemoglobin 14.2 g/dl (14.0-18.0); Immature Granulocytes # (auto) 0.02 K/uL (0.01-0.20); Immature Granulocytes % (auto) 0.3 %; Lymphocytes # (auto) 1.85 K/uL (1.20-3.40); Lymphocytes % (auto) 27.6 %; Mean Corpuscular Hemoglobin 28.6 pg (25.0-34.0); Mean Corpuscular Volume 84.3 fL (80.0-100.0); Mean Platelet Volume 9.7 fL (9.4-12.4); Monocytes # (auto) 0.61 K/uL (0.11-0.59); Monocytes % (auto) 9.1 %; Neutrophils # (auto) 4.04 K/uL (1.40-6.50); Neutrophils % (auto) 60.4 %; Platelet Count 299 K/uL (130-400); RDW Coefficient of Variation 15.3 % (11.5-14.5); RDW Standard Deviation 46.7 fL (36.4-46.3); Red Blood Count 4.96 M/uL (4.70-6.10)
[2024-01-02 06:21] LABS: BUN Creatinine Ratio 12.5 (10-20); Calcium 7.9 mg/dl (8.6-10.3); Magnesium 1.9 mg/dl (1.7-2.4); Potassium 3.8 mmol/L (3.5-5.1)
--- NOTE | 2024-01-02 07:26 | Anesthesiology Progress Note ---
Date of Service January 01, 2024 Anesthesia Post Procedure Vital Signs Vital Signs: Temp Pulse Pulse Resp BP BP Pulse Ox 01/02/24 03:23 36.8 C 69 18 133/85 97 01/01/24 23:46 36.5 C 66 18 111/75 97 01/01/24 21:51 69 01/01/24 21:03 01/01/24 19:56 36.6 C 85 18 109/80 97 01/01/24 15:25 36.7 C 70 20 110/75 96 01/01/24 13:06 76 01/01/24 12:30 70 18 120/82 94 01/01/24 12:15 71 18 123/91 95 01/01/24 12:00 78 18 122/90 96 01/01/24 11:30 78 18 135/96 94 01/01/24 11:00 79 18 130/92 96 01/01/24 10:45 83 01/01/24 10:45 77 18 117/88 95 01/01/24 10:30 78 14 129/80 94 01/01/24 10:17 78 14 110/80 94 01/01/24 09:05 77 14 107/72 95 01/01/24 08:50 75 14 97/69 L 95 01/01/24 07:38 36.7 C 139 H 14 113/112 H 90 O2 Del Method 01/02/24 03:23 Room Air 01/01/24 23:46 Room Air 01/01/24 21:51 01/01/24 21:03 Room Air 01/01/24 19:56 Room Air 01/01/24 15:25 Room Air 01/01/24 13:06 01/01/24 12:30 Room Air 01/01/24 12:15 Room Air 01/01/24 12:00 Room Air 01/01/24 11:30 Room Air 01/01/24 11:00 Room Air 01/01/24 10:45 01/01/24 10:45 Room Air 01/01/24 10:30 Room Air 01/01/24 10:17 Room Air 01/01/24 09:05 Room Air 01/01/24 08:50 Room Air 01/01/24 07:38 Room Air Transfer of Care Handoff Completed per policy Notes Mental Status: alert / awake / arousable and participated in evaluation Nausea / Vomiting: adequately controlled Pain: adequately controlled Airway Patency, RR, SpO2: stable & adequate BP & HR: stable & adequate Hydration State: stable & adequate Anesthetic Complications: no major complications apparent and Pt Satisfied with anesthetic care
[2024-01-02 10:44] VITALS: BP 105/69; PULSE 69; RESP 19; TEMP 97.9; O2SAT 96
--- NOTE | 2024-01-02 11:02 | Electrocardiogram Report ---
Test Reason : Blood Pressure : */* mmHG Vent. Rate : 183 BPM Atrial Rate : 241 BPM P-R Int : * ms QRS Dur : 72 ms QT Int : 262 ms P-R-T Axes : * 74 -56 degrees QTcB Int : 457 ms Probable Atrial fibrillation with rapid ventricular response Nonsustained ventricular tachycardia Cannot rule out Anterior infarct , age undetermined Abnormal ECG When compared with ECG of 30-Dec-2023 16:13, Significant changes have occurred Confirmed by Clay Dillard ([id number]) on 01/02/2024 11:02:03 AM Referred By: REFERRED SELF Confirmed By: Clay Dillard
--- NOTE | 2024-01-02 11:04 | Electrocardiogram Report ---
Test Reason : Blood Pressure : */* mmHG Vent. Rate : 185 BPM Atrial Rate : 187 BPM P-R Int : 96 ms QRS Dur : 114 ms QT Int : 286 ms P-R-T Axes : * -51 124 degrees QTcB Int : 501 ms Wide QRS tachycardia Left axis deviation Anterior infarct Abnormal ECG When compared with ECG of 30-Dec-2023 16:31, (unconfirmed) Significant changes have occurred Confirmed by Clay Dillard ([id number]) on 01/02/2024 11:04:10 AM Referred By: REFERRED SELF Confirmed By: Clay Dillard
--- NOTE | 2024-01-02 11:05 | Electrocardiogram Report ---
Test Reason : Blood Pressure : */* mmHG Vent. Rate : 145 BPM Atrial Rate : * BPM P-R Int : * ms QRS Dur : 74 ms QT Int : 308 ms P-R-T Axes : * 61 22 degrees QTcB Int : 478 ms Atrial fibrillation with rapid ventricular response Anterior infarct (cited on or before 30-Dec-2023) Abnormal ECG When compared with ECG of 30-Dec-2023 17:17, (unconfirmed) No significant change was found Confirmed by Clay Dillard ([id number]) on 01/02/2024 11:05:09 AM Referred By: REFERRED SELF Confirmed By: Clay Dillard
--- NOTE | 2024-01-02 11:05 | Electrocardiogram Report ---
Test Reason : Blood Pressure : */* mmHG Vent. Rate : 143 BPM Atrial Rate : * BPM P-R Int : * ms QRS Dur : 74 ms QT Int : 320 ms P-R-T Axes : * 57 -19 degrees QTcB Int : 493 ms Atrial fibrillation with rapid ventricular response Low voltage QRS Cannot rule out Anterior infarct (cited on or before 30-Dec-2023) Abnormal ECG When compared with ECG of 30-Dec-2023 17:01, (unconfirmed) T wave inversion no longer evident in Inferior leads Nonspecific T wave abnormality no longer evident in Lateral leads Confirmed by Clay Dillard ([id number]) on 01/02/2024 11:05:01 AM Referred By: REFERRED SELF Confirmed By: Clay Dillard
--- NOTE | 2024-01-02 11:05 | Electrocardiogram Report ---
Test Reason : Blood Pressure : */* mmHG Vent. Rate : 182 BPM Atrial Rate : * BPM P-R Int : * ms QRS Dur : 70 ms QT Int : 244 ms P-R-T Axes : * 58 -48 degrees QTcB Int : 424 ms Atrial fibrillation with rapid ventricular response with premature ventricular or aberrantly conducte d complexes Low voltage QRS Cannot rule out Anterior infarct (cited on or before 30-Dec-2023) T wave abnormality, consider inferior ischemia Abnormal ECG When compared with ECG of 30-Dec-2023 16:43, (unconfirmed) Significant changes have occurred Confirmed by Clay Dillard ([id number]) on 01/02/2024 11:04:41 AM Referred By: REFERRED SELF Confirmed By: Clay Dillard
--- NOTE | 2024-01-02 11:05 | Electrocardiogram Report ---
Test Reason : Blood Pressure : */* mmHG Vent. Rate : 134 BPM Atrial Rate : * BPM P-R Int : * ms QRS Dur : 74 ms QT Int : 334 ms P-R-T Axes : * 88 8 degrees QTcB Int : 498 ms Atrial fibrillation with rapid ventricular response Anterior infarct (cited on or before 30-Dec-2023) Abnormal ECG When compared with ECG of 30-Dec-2023 17:38, (unconfirmed) No significant change was found Confirmed by Clay Dillard ([id number]) on 01/02/2024 11:05:26 AM Referred By: REFERRED SELF Confirmed By: Clay Dillard
--- NOTE | 2024-01-02 12:09 | Hospitalist Progress Note ---
Date of Service January 02, 2024 Assessment & Plan (1) Atrial fibrillation with rapid ventricular response: Plan: Was on IV amiodarone and has been changed to 200 mg twice daily from today Status post successful TAMRA cardioversion with reversion to sinus rhythm Has been on a small dose of beta-art Remains in sinus rhythm and maintaining the rate Rate is controlled and the blood pressure is controlled to Denies any symptoms at rest (2) Acute on chronic systolic heart failure: Plan: Has been receiving intravenous Lasix with ongoing diuresis Echo of the heart showed normal LV wall thickness, EF 30 to 35%, RV mildly dilated with mildly reduced RV function, mild to moderate mitral regurgitation, borderline pulmonary hypertension Appreciate cardiology input and recommendation and has been getting intravenous Lasix for diuresis Cumulative fluid balance is -3605 (3) Wide-complex tachycardia: Plan: Minimal nonobstructive CAD Status post cardiac cath Noted to have minimal nonobstructive disease Plan to continue diuresis, titration of GDMT, A-fib rhythm control Has been on Jardiance, beta-art, Entresto and a small dose of spironolactone will be added tomorrow No more cardiac arrhythmias (4) Prediabetes: Plan: Hemoglobin A1c is 5.8 Jardiance has been added (5) Pulmonary hypertension: (6) Morbid obesity: (7) Suspected sleep apnea: (8) Bilateral pleural effusion: Plan DVT prophylaxis on Xarelto CODE STATUS full Admission and Anticipated Discharge Date Admission Date: December 30, 2023 Subjective 01/01/2024 The patient was seen and examined in telemetry unit He is a status post cardioversion with reversion to sinus rhythm Denies any significant symptoms and does not have any cardiac symptoms Will observe tonight 01/02/2024 The patient was seen and examined in telemetry unit He has been feeling a lot better without any cardiac symptoms His rate is controlled and remains hemodynamically stable Wondering when he can be discharged Review of Systems Review of Systems: All systems reviewed and are unremarkable except as noted below Physical Exam Physical Exam: Lying in bed without any acute distress but a little anxious from the cardioversion Constitutional: well developed, well nourished, + ill appearing and + obese Eyes: PERRL, conjunctivae normal, anicteric sclerae ENMT: external ear and nose normal, oropharynx normal Neck: trachea midline, no thyromegaly Respiratory: normal respiratory effort, lungs clear to auscultation Cardiovascular: Rate/Rhythm: regular rate and regular rhythm; not tachycardic Heart Sounds: normal S1 and normal S2; no murmur Extremities: + edema ( trace edema bilaterally) Gastrointestinal (Abdomen): Inspection/Auscultation: normal bowel sounds; abdomen not distended Percussion/Palpation: abdomen soft; abdomen nontender Neurologic: normal touch/pain/proprioception and moves all extremities; no focal motor deficits Psychiatric: A+Ox3, euthymic affect Lymphatic: no cervical or axillary lymphadenopathy Results & Data Results & Data Vital Signs (Past 12 Hours) Vital Signs Temp Pulse Pulse Resp BP BP Pulse Ox 01/02/24 10:41 36.6 C 69 19 105/69 96 01/02/24 08:00 76 01/02/24 07:51 36.8 C 79 20 118/79 95 01/02/24 03:23 36.8 C 69 18 133/85 97 O2 Del Method 01/02/24 10:41 Room Air 01/02/24 08:00 01/02/24 07:51 Room Air 01/02/24 03:23 Room Air Laboratory Results Short CBC 01/02/24 Range/Units 05:28 WBC 6.70 (4.8-10.8) K/ul Hgb 14.2 (14.0-18.0) g/dl Hct 41.8 L (42.0-52.0) % Plt Count 299 (130-400) K/uL BMP 01/02/24 05:28 Sodium 140 Potassium 3.8 Chloride 108 H Carbon Dioxide 25 BUN 14 Creatinine 1.12 Glucose 99 Calcium 7.9 L Medications Administered Current Inpatient Medications Amiodarone HCl (Amiodarone 200 Mg Tab) 200 mg PO BIDM PIEDAD Stop: 01/31/24 10:29 Last Admin: 01/02/24 09:17 Dose: 200 mg Empagliflozin (Empagliflozin 10 Mg Tab) 10 mg PO DAILY PIEDAD Stop: 01/31/24 08:59 Last Admin: 01/02/24 09:18 Dose: 10 mg Furosemide (Furosemide 40 Mg/4 Ml Vial) 40 mg IV DAILY PIEDAD Stop: 01/31/24 08:59 Last Admin: 01/02/24 09:21 Dose: 40 mg Lorazepam (Lorazepam 1 Mg Tab) 1 mg PO Q8H PRN PRN Reason: Anxiety/Insomnia Stop: 01/30/24 15:37 Last Admin: 12/31/23 20:24 Dose: 1 mg Metoprolol Tartrate (Metoprolol Tartrate 50 Mg Tab) 50 mg PO BID [facility] Stop: 01/30/24 20:59 Last Admin: 01/02/24 09:17 Dose: 50 mg Metoprolol Tartrate (Metoprolol Tartrate 1 Mg/Ml Vial) 5 mg IV Q4H PRN PRN Reason: Tachycardia/ HR>120 Stop: 01/30/24 15:37 Rivaroxaban (Rivaroxaban 20 Mg Tab) 20 mg PO QDD [facility] Stop: 01/31/24 10:29 Last Admin: 01/01/24 11:05 Dose: 20 mg Sacubitril/Valsartan (Valsartan/Sacubitril 26/24mg Tab) 1 tab PO BID [facility] Stop: 01/30/24 20:59 Last Admin: 01/02/24 09:17 Dose: 1 tab
--- NOTE | 2024-01-02 13:23 | Cardiology Progress Note ---
Date of Service January 02, 2024 Assessment & Plan (1) Acute HFrEF (heart failure with reduced ejection fraction): Plan: 2. Atrial fibrillation with RVRpost DCCV 01/01/2024; on Amio/Xarelto 3. Wide-complex tachycardiasuspected presenting monomorphic VT; on amnio 4. Mild to moderate mitral regurgitationecho 12/2023 5. Minimal nonobstructive CAD 6. Mildly dilated RV/dysfunction with borderline pulmonary hypertension 7. Class III obesity/suspected SHILPI Doing well from a cardiac standpoint. Inez orozco Remains in sinus rhythm post cardioversion. Renal function stable. Still with some mild congestion on exam. Patient feeling well and asking about going home today. Feel there is still some residual congestion but [facility] with [facility] follow-up. Home on: Lasix 40 mg twice daily We discussed daily weights and salt restriction Continue amiodarone 200 mg twice daily for next 2 weeks then 200 mg daily Continue current Xarelto Continue Entresto, Jardiance Transition to Toprol-XL 100 mg daily on discharge Add spironolactone 25 mg daily today Repeat BMP 01/06/2024 -- Outpatient sleep study Will arrange follow-up with CHF clinic early next week. Admission and Anticipated Discharge Date Admission Date: December 30, 2023 Subjective Feeling well today. Denies any chest pain. No palpitations. Breathing comfortably walking around room. Negative almost 3 L overnight. Telemetry reviewedremains in sinus rhythm. Review of Systems Review of Systems: All systems reviewed & are unremarkable except as noted in HPI & below Physical Exam Physical Exam: General: Comfortable HEENT: Sclerae anicteric Lungs: Clear bilaterally Cardiac: Sinus rhythm, no murmurs Vascular: 2+ right radial. No hematoma or ecchymosis. Intact distal sensation Abdomen: Soft, nontender Extremities: Well perfused, trace lower extremity edema to mid [place] Neuro: Nonfocal Psych: Alert orient x3, normal affect and mood Results & Data Vital Signs (Past 12 Hours) Vital Signs Temp Pulse Pulse Resp BP BP Pulse Ox 01/02/24 10:41 97.9 F 69 19 105/69 96 01/02/24 08:00 76 01/02/24 07:51 98.2 F 79 20 118/79 95 01/02/24 03:23 98.2 F 69 18 133/85 97 O2 Del Method 01/02/24 10:41 Room Air 01/02/24 08:00 01/02/24 07:51 Room Air 01/02/24 03:23 Room Air PG Care Time/CCT Total # of Minutes Spent Total Time Spent with Patient: Total time spent is greater than 50% in coordination of care (as documented) at patient's floor/unit and/or counseling patient: Coding Level of Care Code 07852 SUB INP/OBS CARE 3/50MIN Diagnoses Acute HFrEF (heart failure with reduced ejection fraction) I50.21
[2024-01-02] MEDS: SPIRONOLACTONE 25 MG TAB PO SCH (15:07)
[2024-01-02] MEDS ORDERED: FUROSEMIDE 40 MG TAB PO SCH (17:00)
[2024-01-03] MEDS ORDERED: METOPROLOL SUCC 50MG EXT REL TAB PO SCH (09:00)
== END 2024-01-02 15:55 | disposition home or self-care (01) | DRG 286 ==
LOC: ED 15:50 → SUATTDRO 18:11 → 1E 18:26 → 2E 12-31 18:51